=== PATIENT | female | born 1990 | race Two or more races ===

== ENCOUNTER 2020-11-01 09:45 | Outpatient (REF) | payer OTHER, SELFPAY ==
[2020-11-02 07:21] LABS: BV Int Neg Control Negative (Negative); BV Int Pos Control Positive (Positive)
[2020-11-08 09:47] LABS: HPV mRNA E6/E7 rflx Not Detected (Not Detected)
[2020-11-30 15:19] LABS: CT PCR NOT DETECTED (Not Detect.); NG PCR NOT DETECTED (Not Detect.)
== END 2020-11-01 09:46 | disposition home or self-care (01) ==
LOC: HO.LAB 09:45
PROVIDERS: Visit Provider Advanced Practice Midwife
DX: Z01.419 Encounter for gynecological examination (general) (routine) without abnormal findings (principal); D25.9 Leiomyoma of uterus, unspecified; N92.0 Excessive and frequent menstruation with regular cycle; Z86.2 Personal history of diseases of the blood and blood-forming organs and certain disorders involving the immune mechanism; N89.8 Other specified noninflammatory disorders of vagina; N86 Erosion and ectropion of cervix uteri; N88.8 Other specified noninflammatory disorders of cervix uteri
CPT/HCPCS: 87480; 87491; 87510; 87591; 87624; 87625; 87660; 88142

== ENCOUNTER 2020-12-18 15:51 | Outpatient (REF) | payer OTHER, SELFPAY ==
--- NOTE | 2020-12-18 15:54 | US_ITS ---
EXAMINATION: ULTRASOUND PELVIS COMPLETE. CLINICAL INFORMATION: Leiomyoma of the uterus. COMPARISON: Ultrasound pelvis 01/13/2020 TECHNIQUE: Transabdominal and transvaginal ultrasound pelvis is performed. FINDINGS: The uterus is retroverted and retroflexed measuring 9.1 cm in length, 3.6 cm in AP and 4.9 cm in transverse dimension. There are 3 hypoechoic lesions. 1. Lesion in the left fundus measures 2.4 x 1.8 x 2.5 cm. Previously it measured 2.0 x 1.7 x 1.8 cm. 2. Lesion in the right fundus measures 2.2 x 1.8 x 1.9 cm. Previously it measured 2.2 x 2.1 x 2.5 cm. 3. Lesion in the posterior body of the uterus measures 1.0 x 0.8. Previously it measured 1.0 x 0.7 x 1.2 cm. The endometrial thickness is 0.6 cm. Small nabothian cysts seen in the cervix. Right ovary measures 3.4 x 1.9 x 1.6 cm and volume 5.4 mL. It is unremarkable. Previously measured 3.4 x 1.5 x 1.8 cm. Left ovary measures 2.4 x 1.9 x 1.6 cm and volume 4.1 mL. It is unremarkable Previously it measured 2.7 x 1.4 x 2.2 cm. There is no free fluid in the cul-de-sac. US/US pelvic complete IMPRESSION: 1. Stable uterine fibroids. 2. Small nabothian cysts seen in the cervix. 3. The ovaries are unremarkable.
== END 2020-12-18 15:52 | disposition home or self-care (01) ==
LOC: HO.US 15:51
PROVIDERS: Visit Provider Advanced Practice Midwife
DX: D25.9 Leiomyoma of uterus, unspecified (principal)
CPT/HCPCS: 76830; 76856

== ENCOUNTER → 2020-12-26 12:20 | Outpatient (BNVA) | payer OTHER, SELFPAY | PROVIDERS: Visit Provider Advanced Practice Midwife ==

== ENCOUNTER 2022-06-09 15:36 | Outpatient (REF) | payer OTHER, SELFPAY ==
[2022-06-10 09:13] LABS: CT PCR NOT DETECTED (Not Detect.); NG PCR NOT DETECTED (Not Detect.)
[2022-06-10 09:44] LABS: BV Int Neg Control Negative (Negative); BV Int Pos Control Positive (Positive)
[2022-06-12 12:26] LABS: HPV mRNA E6/E7 rflx Not Detected (Not Detected)
== END 2022-06-09 15:37 | disposition home or self-care (01) ==
LOC: HO.LAB 15:36
PROVIDERS: Visit Provider Advanced Practice Midwife
DX: Z01.419 Encounter for gynecological examination (general) (routine) without abnormal findings (principal); N88.9 Noninflammatory disorder of cervix uteri, unspecified; N93.9 Abnormal uterine and vaginal bleeding, unspecified; Z20.2 Contact with and (suspected) exposure to infections with a predominantly sexual mode of transmission; N92.1 Excessive and frequent menstruation with irregular cycle
CPT/HCPCS: 87480; 87491; 87510; 87591; 87624; 87660; 88142

== ENCOUNTER 2022-07-29 13:46 | Outpatient (REF) | payer OTHER, SELFPAY ==
--- NOTE | ~2022-07-29 | US_ITS ---
EXAMINATION: US PELVIS CLINICAL INFORMATION: Abnormal bleeding. COMPARISON: Previous pelvic ultrasound, most recent 12/18/2020. TECHNIQUE: Ultrasound of the pelvis is performed using both transabdominal and transvaginal transducers along with Doppler. Transvaginal imaging is performed due to inadequate visualization transabdominally. FINDINGS: The uterus is anteverted and measures 8.7 x 4 x 4.6 cm in dimension. The uterus is heterogeneous appearing. There are 2 focal subserosal hypoechoic uterine lesions suggestive of fibroids measuring 1.7 x 1.3 x 1.2 cm in the left anterior upper uterine body or fundus and measuring 1.8 x 1.6 x 1.6 cm in the right anterior upper uterine body or fundus. Endometrial thickness measures 9 mm. There are small cysts seen in or adjacent to the endometrium measuring up to 5 mm. These were not appreciated on 2020 exam. The ovaries are normal. The right ovary measures 3 x 1.7 x 1.9 cm. The left ovary measures 2.9 x 1.6 x 1.9 cm. There is no fluid in the pelvis. US/US pelvic and transvaginal IMPRESSION: Heterogeneous-appearing uterus. Two stable focal hypoechoic subserosal lesions in the upper uterine body or fundus. Normal thickness endometrium. New small cysts in or adjacent to the endometrium. Fibroids and adenomyomas/adenomyosis should be considered. Normal-appearing ovaries.
[2022-07-29 13:39] LABS: Hematocrit 33.3 % (37.0-47.0); Hemoglobin 9.8 g/dl (12.0-16.0); Mean Corpuscular HGB Conc 29.4 g/dl (31.0-35.0); Mean Corpuscular Hemoglobin 21.3 pg (27.0-33.0); Mean Corpuscular Volume 72.2 fL (80.0-98.0); Mean Platelet Volume 10.3 fL (9.4-12.3); Platelet Count 287 X10*3/uL (160-400); Red Blood Count 4.61 X10*6/uL (4.20-5.50); Red Cell Distribution Width 15.8 % (11.0-16.0); White Blood Count 7.7 X10*3/uL (4.8-10.8)
[2022-07-29 14:20] LABS: Thyroid Stimulating Hormone 0.88 uIU/mL (0.32-4.0)
== END 2022-07-29 13:47 | disposition home or self-care (01) ==
LOC: HO.US 13:46
PROVIDERS: Visit Provider Advanced Practice Midwife
DX: N93.9 Abnormal uterine and vaginal bleeding, unspecified (principal); N92.1 Excessive and frequent menstruation with irregular cycle
CPT/HCPCS: 36415; 76830; 76856; 84443; 85027

== ENCOUNTER 2022-08-05 | Outpatient (REF) | payer OTHER, SELFPAY | END 2022-08-05 00:01 | disposition home or self-care (01) | LOC: HO.LAB | PROVIDERS: PCP Internal Medicine; Visit Provider Advanced Practice Midwife | DX: Z32.02 Encounter for pregnancy test, result negative (principal); N93.9 Abnormal uterine and vaginal bleeding, unspecified | CPT/HCPCS: 58100; 81025; 88305 ==

== ENCOUNTER → 2022-11-06 14:34 | Outpatient (BNVA) | payer OTHER, SELFPAY | PROVIDERS: PCP Internal Medicine; Visit Provider Obstetrics & Gynecology | DX: N93.9 Abnormal uterine and vaginal bleeding, unspecified (principal); D21.9 Benign neoplasm of connective and other soft tissue, unspecified; N88.8 Other specified noninflammatory disorders of cervix uteri | CPT/HCPCS: 57454; 81025 ==

== ENCOUNTER 2022-11-06 16:58 | Outpatient (REF) | payer OTHER, SELFPAY | END 2022-11-06 16:59 | disposition home or self-care (01) | LOC: HO.LNP 16:58 | PROVIDERS: Visit Provider Obstetrics & Gynecology | DX: N86 Erosion and ectropion of cervix uteri (principal) | CPT/HCPCS: 88305 ==

== ENCOUNTER → 2022-12-03 12:31 | Outpatient (BNVA) | payer OTHER, SELFPAY | PROVIDERS: PCP Internal Medicine; Visit Provider Obstetrics & Gynecology | DX: Z13.89 Encounter for screening for other disorder (principal) ==

== ENCOUNTER 2023-02-05 10:39 | Outpatient (REF) | payer OTHER, SELFPAY ==
[2023-02-05 12:15] LABS: Hematocrit 34.2 % (37.0-47.0); Hemoglobin 9.9 g/dl (12.0-16.0); Mean Corpuscular HGB Conc 28.9 g/dl (31.0-35.0); Mean Platelet Volume 10.4 fL (9.4-12.3); Platelet Count 285 X10*3/uL (160-400); Red Blood Count 4.96 X10*6/uL (4.20-5.50); Red Cell Distribution Width 18.9 % (11.0-16.0)
== END 2023-02-05 10:40 | disposition home or self-care (01) ==
LOC: HO.LAB 10:39
PROVIDERS: PCP Internal Medicine; Visit Provider Obstetrics & Gynecology
DX: N93.9 Abnormal uterine and vaginal bleeding, unspecified (principal)
CPT/HCPCS: 36415; 85027

== ENCOUNTER 2023-05-07 10:41 | Outpatient (REF) | payer OTHER, SELFPAY ==
--- NOTE | ~2023-05-07 | US_ITS ---
EXAMINATION: US PELVIS CLINICAL INFORMATION: Myoma. COMPARISON: Pelvic ultrasound 07/29/2022. TECHNIQUE: Ultrasound of the pelvis is performed using both transabdominal and transvaginal transducers along with Doppler. Transvaginal imaging is performed due to inadequate visualization transabdominally. FINDINGS: UTERUS: The uterus is anteverted and measures 9.9 x 4.0 x 5.6 cm. The double wall endometrial thickness is 0.5 mm. 2 uterine fibroids are seen one in the right body subserosal measuring 1.8 x 1.4 x 1.6 cm (previously 2.2 x 1.8 x 1.9 cm) and the other on the left submucosal measuring 2.1 x 1.7 x 2.0 cm (previously 2.4 x 1.8 x 1.8 cm). No new uterine fibroids are seen. Nabothian cysts are present in the cervix. ADNEXA: Both ovaries are visualized. There is normal color flow to the adnexa. There is no ovarian torsion. There is no pelvic ascites or fluid collection. Right ovary measures 3.1 x 1.0 x 2.3 cm for a volume of 3.7 mL. Left ovary measures 2.7 x 1.2 x 1.7 cm for a volume of 2.9 mL. US/US pelvic and transvaginal IMPRESSION: Two uterine fibroids are present as described above. One appears smaller, the other about the same.
== END 2023-05-07 10:42 | disposition home or self-care (01) ==
LOC: HO.US 10:41
PROVIDERS: PCP Internal Medicine; Visit Provider Obstetrics & Gynecology
DX: D21.9 Benign neoplasm of connective and other soft tissue, unspecified (principal)
CPT/HCPCS: 76830; 76856

== ENCOUNTER 2023-05-21 09:39 | Outpatient (REF) | payer OTHER, SELFPAY ==
[2023-05-22 02:50] LABS: CT PCR NOT DETECTED (Not Detect.); NG PCR NOT DETECTED (Not Detect.)
[2023-05-22 11:12] LABS: BV Int Neg Control Negative (Negative); BV Int Pos Control Positive (Positive)
== END 2023-05-21 09:40 | disposition home or self-care (01) ==
LOC: HO.LNP 09:39
PROVIDERS: PCP Internal Medicine; Visit Provider Obstetrics & Gynecology
DX: B37.31 Acute candidiasis of vulva and vagina (principal); D21.9 Benign neoplasm of connective and other soft tissue, unspecified
CPT/HCPCS: 0353U; 81003; 87480; 87510; 87660

== ENCOUNTER 2023-07-09 11:59 | Outpatient (AMB) | payer OTHER, SELFPAY ==
[2023-07-09 12:08] VITALS: BP 118/70; BMI 36.3
--- NOTE | 2023-07-09 12:08 | MHC.OFFVIS ---
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 No complaints. 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 Sexually active: Yes Sexual orientation: Straight/Heterosexual Gender identity: Female Female Reproductive History Menstrual Age of Menarche: 8 Total pregnancies: 3 Full term: 3 Number of Living Children: 3 Date of last pap smear: 06/10/22 Review of Systems Const All systems reviewed & are unremarkable except as noted in HPI and below Card Reports as per HPI Resp Reports as per HPI GI Reports as per HPI and Reports no additional complaints Reports as per HPI Physical Exam Vital Signs: Last Vital Signs BP 118/70 07/09/23 12:08 BMI result Body Mass Index 36.3 Const General: cooperative, healthy appearing and comfortable Chest Chest palpation & inspection: normal inspection of the chest and normal palpation of entire chest wall Breast/axilla inspection: normal inspection of the breasts and normal inspection of the axillae Breast/axilla palpation: normal palpation of the breasts, normal palpation of the axillae and no axillary lymphadenopathy Resp Effort & Inspection: normal respiratory effort Auscultation: clear to auscultation bilaterally Percussion: percussion normal Cardio Palpation: normal PMI Rate: regular rate Rhythm: regular rhythm Heart sounds: no murmurs and no rubs Peripheral pulses: Peripheral pulses 2+ throughout GI Inspection: Yes normal to inspection Palpation (GI): Soft to palpation, nontender, no guarding, not rigid and No hepatosplenomegaly present Percussion: Yes normal to percussion Auscultation: normal bowel sounds Rectal Exam - Female: deferred General: Yes bladder normal to palpation External Female Exam: No lesion Speculum Exam - Vagina: normal appearance of the vagina, normal palpation, normal vaginal discharge and not erythematous Speculum Exam - Cervix: normal appearance of the cervix and normal palpation Bimanual exam- vagina & uterus: normal bimanual exam, normal palpation, uterine size normal, bladder normal to palpation, consistency normal and normal palpation Bimanual Exam- Adnexa, other: normal adnexae, no masses and no tenderness Assessment & Plan Assessment & Plan (1) Well woman exam: Code(s): Z01.419 - Encounter for gynecological examination (general) (routine) without abnormal findings Plan: Cotesting not indicated this year. Counseled the patient about the recommended dietary allowance of 1000 mg of Calcium & 600 IU of vitamin D. The patient was instructed to perform monthly self-breast exams and to schedule an annual exam in a year; All questions answered and the patient verbalized understanding. Instructed the patient to schedule annual exam in a year Coding Level of Care Code Est Pt Prev Care 18-39y(67286) Diagnoses Well woman exam Z01.419
== END 2023-07-09 12:35 | disposition home or self-care (01) ==
LOC: HO.HWS 11:59
PROVIDERS: PCP Internal Medicine; Visit Provider Obstetrics & Gynecology
DX: Z01.419 Encounter for gynecological examination (general) (routine) without abnormal findings (principal)
CPT/HCPCS: 99395

== ENCOUNTER → 2023-07-09 11:59 | Outpatient (BNVA) | payer OTHER, SELFPAY | PROVIDERS: PCP Internal Medicine; Visit Provider Obstetrics & Gynecology ==

== ENCOUNTER 2024-09-07 14:14 | Outpatient (REF) | payer MEDICAID, SELFPAY | END 2024-09-07 14:15 | disposition home or self-care (01) | LOC: HO.LNP 14:14 | PROVIDERS: PCP Internal Medicine; Visit Provider Obstetrics & Gynecology | DX: Z01.419 Encounter for gynecological examination (general) (routine) without abnormal findings (principal); D21.9 Benign neoplasm of connective and other soft tissue, unspecified; N93.9 Abnormal uterine and vaginal bleeding, unspecified | CPT/HCPCS: 99395 ==

== ENCOUNTER 2024-09-07 14:14 | Outpatient (AMB) | payer MEDICAID, SELFPAY ==
--- NOTE | 2024-09-07 14:35 | MHC.OFFVIS ---
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 Complaining of heavy menstrual cycles associated with pelvic cramping and passage of blood clots Last Pap/HPV was negative in 06/13 05/15 pelvic ultrasound showed 2 myomas [facility] Medical History Obesity (BMI 30-39.9) Dysmenorrhea History of anemia Menorrhagia Uterine fibroid Asthma Surgical History History of bilateral tubal ligation Family History Maternal Grandmother Ovarian cancer Social History Household Members: Significant Other and Children Housing: House Alcohol intake: never Patient Tobacco Use Status: Never used Tobacco 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al status: employed 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 Sexual orientation: Straight/Heterosexual Gender identity: Female Female Reproductive History Menstrual Age of Menarche: 8 Date of last menstrual period: 08/09/24 control method: permanent sterilization Date of last pap smear: 06/10/22 Review of Systems Const All systems reviewed & are unremarkable except as noted in HPI and below Card Reports as per HPI Resp Reports as per HPI GI Reports as per HPI and Reports no additional complaints Reports as per HPI Physical Exam Vital Signs: Last Vital Signs BP 114/66 09/07/24 14:44 BMI result Body Mass Index 36.0 Const General: cooperative, healthy appearing and comfortable Chest Chest palpation & inspection: normal inspection of the chest and normal palpation of entire chest wall Breast/axilla inspection: normal inspection of the breasts and normal inspection of the axillae Breast/axilla palpation: normal palpation of the breasts, normal palpation of the axillae and no axillary lymphadenopathy Resp Effort & Inspection: normal respiratory effort Auscultation: clear to auscultation bilaterally Percussion: percussion normal Cardio Palpation: normal PMI Rate: regular rate Rhythm: regular rhythm Heart sounds: no murmurs and no rubs Peripheral pulses: Peripheral pulses 2+ throughout GI Inspection: Yes normal to inspection Palpation (GI): Soft to palpation, nontender, no guarding, not rigid and No hepatosplenomegaly present Percussion: Yes normal to percussion Auscultation: normal bowel sounds Rectal Exam - Female: deferred General: Yes bladder normal to palpation External Female Exam: No lesion Speculum Exam - Vagina: normal appearance of the vagina, normal palpation, normal vaginal discharge and not erythematous Speculum Exam - Cervix: normal appearance of the cervix and normal palpation Bimanual exam- vagina & uterus: normal bimanual exam, normal palpation, uterine size normal, bladder normal to palpation, consistency normal and normal palpation Bimanual Exam- Adnexa, other: normal adnexae, no masses and no tenderness Assessment & Plan Assessment & Plan (1) Well woman exam: Code(s): Z01.419 - Encounter for gynecological examination (general) (routine) without abnormal findings Category: Medical Plan: Cotesting not indicated this year. Counseled the patient about the recommended dietary allowance of 1000 mg of Calcium & 600 IU of vitamin D. The patient was instructed to perform monthly self-breast exams and to schedule an annual exam in a year; All questions answered and the patient verbalized understanding. Instructed the patient to schedule annual exam in a year (2) Myoma: Code(s): D21.9 - Benign neoplasm of connective and other soft tissue, unspecified Category: Medical Plan: Pelvic ultrasound ordered for follow-up regarding to previous myomas. Instructions given the patient to schedule an ultrasound and a follow-up appointment within 2 weeks. All questions answered, the patient verbalized understanding (3) Abnormal uterine bleeding: Code(s): N93.9 - Abnormal uterine and vaginal bleeding, unspecified Category: Medical Plan: GC and chlamydia taken CBC, TSH, prolactin, HCG, and pelvic ultrasound ordered. Discussed with the patient the different causes of abnormal bleeding including thyroid disorders, uterine and ovarian pathology, endometrial hyperplasia, carcinoma and other potential causes. Discussed with the patient the work up including CBC (to r/o anemia), TSH, prolactin, pelvic Ultrasound, endometrial biopsy to r/o endometrial pathology. All questions answered and the patient verbalized understanding. Instructed the patient to schedule an appointment for an endometrial biopsy in 2 weeks. Orders: Orders Complete Blood Count no Diff Today N93.9 - Abnormal uterine and vaginal bleeding, unspecified US pelvic and transvaginal Today N93.9 - Abnormal uterine and vaginal bleeding, unspecified TSH reflex Free T4 Today N93.9 - Abnormal uterine and vaginal bleeding, unspecified HCG Quantitative Today N93.9 - Abnormal uterine and vaginal bleeding, unspecified Prolactin Today N93.9 - Abnormal uterine and vaginal bleeding, unspecified Coding Level of Care Code Est Pt Prev Care 18-39y(70833) Diagnoses Well woman exam Z01.419 Myoma D21.9 Abnormal uterine bleeding N93.9
[2024-09-07 14:44] VITALS: BP 114/66; BMI 36.0
== END 2024-09-07 14:57 | disposition home or self-care (01) ==
LOC: HO.HWS 14:14
PROVIDERS: PCP Internal Medicine; Visit Provider Obstetrics & Gynecology
DX: Z01.419 Encounter for gynecological examination (general) (routine) without abnormal findings (principal); D21.9 Benign neoplasm of connective and other soft tissue, unspecified; N93.9 Abnormal uterine and vaginal bleeding, unspecified
CPT/HCPCS: 99395

== ENCOUNTER 2024-09-07 15:01 | Outpatient (REF) | payer MEDICAID, SELFPAY ==
[2024-09-07 15:55] LABS: Hematocrit 30.1 % (37.0-47.0); Hemoglobin 8.9 g/dl (12.0-16.0); Mean Corpuscular HGB Conc 29.6 g/dl (31.0-35.0); Mean Corpuscular Hemoglobin 20.2 pg (27.0-33.0); Mean Corpuscular Volume 68.3 fL (80.0-98.0); Mean Platelet Volume 10.4 fL (9.4-12.3); Platelet Count 308 X10*3/uL (160-400); Red Blood Count 4.41 X10*6/uL (4.20-5.50); Red Cell Distribution Width 17.2 % (11.0-16.0)
[2024-09-07 16:56] LABS: HCG Quantitative < 2 mIU/mL; TSH reflex Free T4 1.13 uIU/mL (0.32-4.0)
[2024-09-08 04:34] LABS: CT PCR NOT DETECTED (Not Detect.); NG PCR NOT DETECTED (Not Detect.)
[2024-09-08 17:44] LABS: Prolactin 8.6 ng/mL
== END 2024-09-07 15:02 | disposition home or self-care (01) ==
LOC: HO.LAB 15:01
PROVIDERS: PCP Internal Medicine; Visit Provider Obstetrics & Gynecology
DX: N93.9 Abnormal uterine and vaginal bleeding, unspecified (principal)
CPT/HCPCS: 84146; 84443; 84702; 85027; 87491; 87591

== ENCOUNTER 2024-09-12 14:48 | Outpatient (REF) | payer MEDICAID, SELFPAY | END 2024-09-12 14:49 | disposition home or self-care (01) | LOC: HO.US 14:48 | PROVIDERS: PCP Internal Medicine; Visit Provider Obstetrics & Gynecology | DX: N93.9 Abnormal uterine and vaginal bleeding, unspecified (principal) | CPT/HCPCS: 76830; 76856 ==

== ENCOUNTER → 2024-09-12 14:49 | Outpatient (BNV) | payer MEDICAID, SELFPAY | PROVIDERS: PCP Internal Medicine; Visit Provider Radiology Diagnostic Radiology | DX: N93.9 Abnormal uterine and vaginal bleeding, unspecified (principal) | CPT/HCPCS: 76830; 76856 ==

== ENCOUNTER 2024-11-09 13:41 | Outpatient (REF) | payer MEDICAID, SELFPAY | END 2024-11-09 13:42 | disposition home or self-care (01) | LOC: HO.LNP 13:41 | PROVIDERS: PCP Internal Medicine; Visit Provider Obstetrics & Gynecology | DX: N93.9 Abnormal uterine and vaginal bleeding, unspecified (principal) | CPT/HCPCS: 58100; 81025; 88305 ==

== ENCOUNTER 2024-11-09 13:41 | Outpatient (AMB) | payer MEDICAID, SELFPAY ==
--- NOTE | 2024-11-09 13:49 | MHC.OFFVIS ---
Vital Signs 11/09/24 13:50 Height 5 ft 2 in Weight 197 lb BMI 36.0 BP 122/70 Intake Visit Reasons: EMB Ticket Seller: Ticket Seller Present (Snehal) Accompanied by: Self / Same As Patient Allergies mushroom Allergy (Unknown, Verified 11/09/24 13:50) Unknown SHELLFISH Allergy (Severe, Uncoded 09/07/24 14:44) THROAT CLOSES, ITCHY HPI Comments Details: Presenting for EMB [facility] Medical History Obesity (BMI 30-39.9) Dysmenorrhea History of anemia Menorrhagia Uterine fibroid Asthma Surgical History History of bilateral tubal ligation Family History Maternal Grandmother Ovarian cancer Social History Household Members: Significant Other and Children Housing: House Alcohol intake: never Patient Tobacco Use Status: Never used Tobacco 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al status: employed 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: [employer] Sexual orientation: Straight/Heterosexual Gender identity: Female Female Reproductive History Menstrual Age of Menarche: 8 Review of Systems Const All systems reviewed & are unremarkable except as noted in HPI and below Reports as per HPI and Reports no additional complaints GI Reports no additional complaints Reports no additional complaints Physical Exam Vital Signs: Last Vital Signs BP 122/70 11/09/24 13:50 BMI result Body Mass Index 36.0 Office Procedures Endometrial Biopsy Details: The patient was counseled regarding the indication and benefits of endometrial sampling to rule out endometrial pathology including not limited to endometrial hyperplasia or endometrial cancer and others; The alternatives (Either do nothing vs. hysteroscopy D&C) & the risks were discussed with the patient including but not limited: pain, uterine perforation, bleeding, infection, possible injury to bladder, bowel, ureter, possible need for blood transfusion with all its possible risks. The patient verbalized understanding all questions answered and signed consent. Urine test done in the office was negative The patient was placed into the dorsal lithotomy position; a speculum was inserted in the vagina. Using aseptic technique for the procedure, the cervix was cleansed with Betadine. The anterior lip of the cervix was grasped with a single tooth tenaculum. The uterus was sounded to 7 cm with a 4 mm Pipelle was used. Tissues samples were obtained and placed in formalin, in a patient labeled container and sent to the pathology department. At the end of the procedure, there was minimal bleeding noted The patient tolerated the procedure well and was discharged in good condition with the following instructions: Nothing in the vagina until the bleeding stops. No sex until the bleeding stops, to call if any of the following occurs: fever (>100.4), flu-like symptoms, abdominal pain, heavy bleeding, four smelling vaginal discharge. The patient was instructed to schedule a Follow up appointment in 2 weeks to discuss pathology results of the biopsy and treatment options. This note was generated with a voice recognition program. Some errors may have been overlooked during the review of this note. Sometimes these errors may affect the content or meaning of a given sentence. [id number] Biopsy Assessment & Plan Assessment & Plan (1) Abnormal uterine bleeding: Code(s): N93.9 - Abnormal uterine and vaginal bleeding, unspecified Category: Medical Plan: EMB done, see procedure note Orders: Orders AMB Endometrial Biopsy Today N93.9 - Abnormal uterine and vaginal bleeding, unspecified Coding Level of Care Code Procedure Only Diagnoses Abnormal uterine bleeding N93.9 CPT Codes Endometrial Biopsy - CPT: 83004-[id number] Biopsy ([id number])
[2024-11-09 13:50] VITALS: BP 122/70; BMI 36.0
== END 2024-11-09 14:15 | disposition home or self-care (01) ==
PROVIDERS: PCP Internal Medicine; Visit Provider Obstetrics & Gynecology
DX: N93.9 Abnormal uterine and vaginal bleeding, unspecified (principal); Z32.02 Encounter for pregnancy test, result negative
CPT/HCPCS: 58100

== ENCOUNTER 2025-01-16 11:39 | Outpatient (AMB) | payer MEDICAID, SELFPAY ==
--- NOTE | 2025-01-16 11:39 | A.OFFVIS_ITS ---
Intake Visit Reasons: EMB results Allergies mushroom Allergy (Unknown, Verified 11/09/24 13:50) Unknown SHELLFISH Allergy (Severe, Uncoded 09/07/24 14:44) THROAT CLOSES, ITCHY HPI Comments Details: The patient is presenting for follow-up to discuss the results of her abnormal uterine bleeding workup and options of treatment. The following workup was done.: H&H= 8.9/30.1 TSH, prolactin, hCG, GC and chlamydia were negative. Endometrial biopsy pathology showed the following: Proliferative endometrium; no atypia or hyperplasia identified Co testing was done in 06/13 was negative. Pelvic ultrasound showed the following: Uterus: The uterus is anteverted, anteflexed, and measures 9.2 x 4.8 x 5.9 cm. The cervix is normal with small nabothian cysts present. The double wall endometrial thickness is 10 mm. It is uniform without irregularity. Uterus is smooth in contour. There are 3 myometrial fibroid tumors. -A right lateral subserosal mid uterine segment fibroid measures 1.3 x 1.2 x 1.2 cm, (previously 1.8 x 1.4 x 1.6 cm). -A left lateral subserosal mid uterine segment fibroid measures 1.5 x 1.4 x 1.6 cm, (previously 2.1 x 1.7 x 2.0 cm). -A smaller midline ventral fundal submucosal fibroid measures 1.2 x 0.9 x 1.0 cm, and was not previously identified. Adnexa: Both ovaries are visualized. There is normal color flow to the adnexa. There is no ovarian torsion. There is no pelvic ascites or fluid collection. There are no adnexal masses. Right ovary measures 3.1 x 1.8 x 1.6 cm. Volume = 4.7 mL (previous volume = 3.7 mL). It is sonographically normal. Left ovary measures 3.0 x 3.0 x 1.7 cm. Volume = 8.0 mL (previous volume = 2.9 mL). 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[employer] Sexual orientation: Straight/Heterosexual Gender identity: Female Female Reproductive History Menstrual Age of Menarche: 8 Review of Systems Const All systems reviewed & are unremarkable except as noted in HPI and below Reports as per HPI and Reports no additional complaints GI Reports no additional complaints Reports no additional complaints Telehealth Telehealth Telehealth Platform: Telephone Location of provider rendering services: practice address Location of patient: address on file Patient Identification confirmed using: Name, : Yes Telehealth method: video Patient verbally consented to treatment: Yes Patient verbally consented to billing insurance company: Yes Patient informed of any privacy concerns related to visit: Yes Minutes spent on Phone/Video with Pt.: 6 Assessment & Plan Assessment & Plan (1) Abnormal uterine bleeding: Comment: Anemia Code(s): N93.9 - Abnormal uterine and vaginal bleeding, unspecified Category: Medical Plan: Discussed with the patient the results of the work up done and options of treatment including Lysteda, control pills, Mirena IUD, endometrial ablation and hysterectomy. All pros, cons, risks and benefits if each option was discussed with the patient and the patient decided to think about it and get back to us. A more detailed discussion about Mirena IUD was conducted including mechanism of action, risks (uterine perforation, infection, injury to bladder, bowel, displacement, and others) benefits (hypo menorrhea, amenorrhea, ...). GC/CT were taken and the patient was instructed if interested to schedule Mirena IUD insertion on day 1-5 of next cycle . All questions answered, the patient verbalized understanding (2) Uterine fibroid: Code(s): D25.9 - Leiomyoma of uterus, unspecified Category: Medical Qualifiers: Uterine leiomyoma location: unspecified location Qualified Code(s): D25.9 - Leiomyoma of uterus, unspecified Plan: Discussed with the patient the results of the ultrasound and the size of the myomas. Discussed with the patient risk of myosarcoma and symptoms that are caused by myomas including but not limited to pelvic pain, pressure symptoms, abnormal uterine bleeding. In addition discussed with the patient options of treatment for myomas including: Serial ultrasounds periodically to follow-up on the size of the myoma while targeting the treatment against fibroids related symptoms ( control pills, Mirena IUD, progesterone treatment, GnRH agonist/antagonist, uterine artery embolization or endometrial ablation) versus surgical treatment including hysterectomy and or myomectomy. All pros and cons, risks and benefits of all options were discussed with the patient. The patient understands that delay in surgical treatment in case of myosarcoma can affect her prognosis, after further discussion, the patient decided to think about it and get back to us . I spent a total of 20 minutes reviewing the chart, talking to the patient via video and documenting in the medical record. Orders: Orders Complete Blood Count no Diff 3 Months N93.9 - Abnormal uterine and vaginal bleeding, unspecified Medications: Discontinued desogestrel-ethinyl estradiol 0.15-0.03 mg (Apri) Discontinued Reason: Patient no longer taking 1 tab PO DAILY 28 days 28 tabs 11RF Coding Level of Care Code Tele Est Pt Level 3 (16531) Diagnoses Abnormal uterine bleeding N93.9 Uterine leiomyoma, unspecified location D25.9 Uterine leiomyoma location: unspecified location
--- OUTSIDE RECORDS SUMMARY | 2025-01-16 13:27 | XMS_ITS | Encounter Summary ---
Author Organization [facility] Address [address] [place] [address] [address] [place] [address] Care Team Providers Care Division Commander Name Role Phone Bessy Hawk MD Primary Care Provider + Encounter Details Date Type Department Care Team (Late st Contact Info) Description 08/26/2023 Abstract [facility] [address] [place], [place] [phone] Richelle Bhardwaj Social History Tobacco Use Types Packs/Day Years Used Date Smoking Tobacco: Never Smokeless Tobacco: Never Comments Unknown Sex and Gender Information Value Date Recorded Sex Assigned at Female 09/22/2022 10:18 AM EDT Legal Sex Female 10:18 AM EDT Gender Identity Female 09/22/2022 10:18 AM EDT Sexual Orientation Straight 09/22/2022 10 :18 AM EDT documented as of this encounter Plan of Treatment Not on file documented as of this encounter Procedures Procedure Name Priority Date/Time Associated Diagnosis Comments PAP/HPV Routine 06/09/2022 documented in this encounter Results * Hm Pap Smear (06/09/2022) Pap Negative for intraephithelial lesion or malignancy Negative for intraephithelial lesion or malignancy, Other HPV Undetected Historical Provider HEALTH MAINTENANCE Final Result documented in this encounter Visit Diagnoses Not on filedocumented in this encounter Care Teams Division Commander Relationship Specialty Start Date End Date Bessy Hawk MD [address] [place], [place] [phone] PCP - General Family Medicine 10/20/16 documented as of this encounter
--- OUTSIDE RECORDS SUMMARY | 2025-01-16 13:27 | XMS_ITS | Encounter Summary ---
Author Organization [facility] Address [address] [place] [address] 7 [place] [address] Care Team Providers Care Graphics Programmer Name Role Phone Bessy Hawk MD Primary Care Provider + Reason for Visit * Reason Comments Med Refill Encounter Details Date Type Department Care Team (Late st Contact Info) Description 03/18/2024 Refill [facility] [address] [place], [place] [phone] Bessy Hawk MD [address] [place] [address] Social History Tobacco Use Types Packs/Day Years [...] on file documented as of this encounter Visit Diagnoses Not on filedocumented in this encounter Care Teams Graphics Programmer Relationship Specialty Start Date End Date Bessy Hawk MD [address] [place], [place] [phone] PCP - General Family Medicine 10/20/16 documented as of this encounter
--- OUTSIDE RECORDS SUMMARY | 2025-01-16 13:27 | XMS_ITS | Clinical Summary ---
Author Organization [facility] Address [address] [place] [address] Care Team Providers Care Data Reduction Technician Name Role Phone Unavailable Primary Care Provider Unavailabl e Social History Tobacco Use Types Packs/Day Years Used Date Smoking Tobacco: Never Assessed Comments Unknown Sex and Gender Information Value Date Recorded Sex Assigned at Not on file Legal Sex Female 1:45 AM EST Gender Identity Not on file Sexual Orientation Not on file Plan of Treatment Health Maintenance Due Date Last Done Comments DTaP,Tdap,and Td Vaccines (1 - Tdap) 2007 Hepatitis B Vaccines (1 of 3 - 19+ 3-dose series) 2007 Cervical Cancer Screening: P ap Smear 2009 COVID-19 Vaccine ( - 2023-2 5 season) 2024 Influenza Vaccine (#1) 2024 HIB Vaccines Aged Out No longer eligi ble based on patient's age to complete this topic HPV Vaccines Aged Out No longer eligi ble based on patient's age to complete this topic Hepatitis A Vaccines Aged Out No long er eligible based on patient's age to complete this topic IPV Vaccines Aged Out No longer eligi ble based on patient's age to complete this topic MMR Vaccines Aged Out No longer eligi ble based on patient's age to complete this topic Meningococcal ACWY Vaccine Aged Out N o longer eligible based on patient's age to complete this topic Meningococcal B Vacine Aged Out No lo nger eligible based on patient's age to complete this topic Pneumococcal Vaccine: Pediat rics (0 to 5 Years) and At-Risk Patients (6 to 64 Years) Aged Out No longer eligible b ased on patient's age to complete this topic RSV Immunization Patients Un cristobal 20 months Aged Out No longer eligible b ased on patient's age to complete this topic Varicella Vaccines Aged Out No longer eligible based on patient's age to complete this topic
--- OUTSIDE RECORDS SUMMARY | 2025-01-16 13:27 | XMS_ITS | Clinical Summary ---
Author Organization [employer] Address [address] [place] [address] 7t [place] [address] Care Team Providers Care Naumkeag Operator Name Role Phone Bessy Hawk MD Primary Care Provider + Allergies Active Allergy Reactions Criticality Noted Date Comments Mushroom Extract Complex (Obsolete) 04/24/2023 Shellfish-Derived Products Unknown 0 Medications Apri 0.15-30 MG-MCG tablet Take 1 tablet by mouth in the morning. 04/15/20 23 Active valACYclovir (Valtrex) 500 MG tablet TAKE 1 TABLET BY MOUTH TWICE A DAY FOR 3 DAYS AT ONSET OF SYMPTOMS. MAY REPEAT NEEDED 08/05/20 22 Active ferrous sulfate 325 (65 Fe) MG tablet TAKE 1 TABLET BY MOUTH 2 TIMES DAILY. (NOT COVERED) 180 tablet 1 11/18/20 23 Active Mometasone Furoate (Asmanex HFA) 100 MCG/ACT aerosol Inhale 2 Inhalation. Once per day. Rinse mouth after use 39 g 3 04/01/20 24 Active fluticasone (Flonase) 50 MCG/ACT nasal spray Administer 1 spray into each nostril Once per day. 16 g 2 04/01/20 24 Active cetirizine (ZyrTEC) 10 MG tablet TAKE 1 TABLET BY MOUTH ONCE DAILY 90 tablet 06/30/20 24 Active albuterol (Ventolin HFA) 108 (90 Base) MCG/ACT inhalerIndicatio ns:Moderate persistent asthma without complication INHALE 2 PUFFS INTO THE LUNGS EVERY 4 TO 6 HOURS NEEDED. 18 g 3 10/25/20 24 Active EPINEPHrine (Epipen) 0.3 MG/0.3ML injection syringe INJECT 0.3 ML INTRAMUSCULARLY ONCE NEEDED FOR ANAPHYLAXIS 2 each 1 11/25/19 25 Active Active Problems Problem Noted Date Diagnosed Date Body aches 04/01/2024 Assessment & Plan (06/04/2024 12:19 PM EDT): Rapid viral tests are NEG today. Advised to take Tylenol prn, increase fluid intake, rest at home 1-2d, discussed re warning signs of an infection: cough, sore throat, fever, diarrhea, UTI sxs for more than 3d, then re consult [facility]. Encounter for preventive health examination 03/23 Assessment & Plan (04/01/2024 10:03 AM EDT): Discussed with patient re increase fresh fruit and vegetable intake. Counseled re moderate exercise as tolerated, up to 20min/d Patient feels safe at home. PAP smear up to date, next one due 2026 (Midwives) Eye exam up to date, next one due 11/2025 Labs up to date, next one due 04/2025 Vaccinations agreed to PCV20 + MMR booster today Dental visit up to date next one due 06/2024 Abdominal bloating 04/24/2023 Menorrhagia 04/24/2023 Mild intermittent asthma 04/24/2023 Assessment & Plan (04/01/2024 10:04 AM EDT): Restart asmanex 2 puffs daily and fu w/ me in 6 m Use albuterol PRN asthma exacerbation PCV20 today Pityriasis versicolor 04/24/2023 Acne 08/02/2013 Herpes simplex type 2 infection 08/02/2013 Overweight 08/02/2013 Asthma 04/04/2013 Allergic rhinitis 06/23/2012 Assessment & Plan (04/01/2024 10:03 AM EDT): Use flonase + zyrtec x 1 wk then PRN Dysmenorrhea 06/23/2012 Iron deficiency anemia 06/23/2012 Encounters Date Type Department Care Team Description 11/24/2024 Refill [facility] [address] [place], [place] [phone] Bessy Hawk MD 11/17/2024 Telephone [facility] [address] [place] [address] Bessy Hawk MD December recall 10/24/2024 Refill [facility] [address] [place] [address] Bessy Hawk MD Moderate persistent asthma without complication from Last 3 Months Immunizations Name Administration Dates Next Due DTP 05/09/1992, 0,1988,10/06,1988 DTaP 04/10/2011 HPV, Quadrivalent 02/19/2011,10/21/2010,07/31/20 10 Hep B, adult 02/14/2002,09/15/2001,08/16/2001 IPV 05/09/1992, 0,1988,10/06,1988 Influenza Injectable Quadriv alant Preservative Free IIV4 MDCK 09/04/2022 Influenza injectable quadriv alent preservative free 09/21/2021,09/05/2020 Influenza, IIV3, injectable 11/20/2014 Influenza, Split (incl. paul fied surface antigen) 08/02/2013 MMR 09/15/2023, 3,11/27/2006,05/09,1988 MMRV 12/10/2011 Pneumococcal Conjugate PCV 20 04/01/2024 Pneumococcal Polysaccharide PPSV23 11/20/2014 Tdap 09/02/2019 Varicella 08/14/2023 Social History Tobacco Use Types Packs/Day Years Used Date Smoking Tobacco: Never Smokeless Tobacco: Never Tobacco Cessation:Counseling Given: Not Answered Alcohol Use Standard Drinks/Week Comments Never 0 (1 standard drink = 0.6 oz pur e alcohol) Housing Stability Answer Date Recorded What is your housing situation today? I have ana jeff 03/23/[address] you li ve. Do you have problems with any of the following? None of the above 03/23/2024 Food Insecurity Answer Date Recorded Within the past 12 months, y ou worried that your food would run out before you got money to buy more: Never True 03/23/2024 Within the past 12 months,th e food you bought just didn't last and you didn't have enough money to get more: Never True 11/2023 Transportation Answer Date Recorded In the past 12 months, has l ack of transportation kept you from medical appts, meetings, work or from getting things needed for daily living? No 03/23/2024 Utilities Answer Date Recorded In the past 12 months, has t he electric, gas, oil or water company threatened to shut off services in your home? No 03/23/2024 Comments No Sex and Gender Information Value Date Recorded Sex Assigned at Female 09/22/2022 10:18 AM EDT Legal Sex Female 10:18 AM EDT Gender Identity Female 09/22/2022 10:18 AM EDT Sexual Orientation Straight 09/22/2022 10 :18 AM EDT Last Filed Vital Signs Vital Sign Reading Time Taken Comments Blood Pressure 140/89 04/01/2024 9:12 AM EDT Pulse 68 04/01/2024 9:12 AM EDT Temperature 36.2 ??C (97.1 ??F) 04/01/2024 9:12 AM ED T Respiratory Rate 18 12/14/2023 9:17 AM EST Oxygen Saturation 97% 04/01/2024 9:12 AM EDT Inhaled Oxygen Concentration - - Weight 89 kg (196 lb 4 oz) 04/01/2024 9:12 AM ED T Height 157.5 cm (5' 2 ) 04/01/2024 9:12 AM EDT Body Mass Index 35.89 04/01/2024 9:12 AM EDT Plan of Treatment Health Maintenance Due Date Last Done Comments Depression Screening 1988 Alcohol/Substance Use Screening 2000 Family Planning (PISQ) 2003 COVID-19 Vaccine ( season) 2024 03/03/2022, 08/13/2021, 07/19/2021 Influenza Vaccine (#1) 2024 , 09/21/2021, 09/05/2020, Additional history exists SDOH Screening 03/23/2025 03/23/2024 Tobacco Screening 04/01/2025 04/01/2024 Cervical Cancer Screening 06/09/2027 HPV/Cotest 06/09/2027 06/09/2022, 05/23, 06/09/2022 Pap Smear 06/09/2027 06/09/2022 DTaP/Tdap/Td Vaccines (8 - Td or Tdap) 09/02/2029 09/02/2019, 04/10/2011, 05/09/1992, Additional history exists Zoster Vaccines (1 of 2) 2038 RSV Patients and Patients Aged 60 years or older (1 - 1-dose 75+ series) 2063 IPV Vaccines Completed 05/09/1992, 04/24, 1988, Additional history exists HPV Vaccines Completed 02/19/2011, 09/24, 07/31/2010 HIV Screening Completed 03/03/2022 Hepatitis C Screening Completed 03/03/2022 Pneumococcal Vaccine: Pediatrics (0 to 5 Years) and At-Risk Patients (6 to 49) Years) Completed 04/01/2024, 11/20/2014 Hepatitis B Vaccines Completed 04/07/2024, 02/14/2002, 09/15/2001, Additional history exists HIB Vaccines Aged Out No longer eligi ble based on patient's age to complete this topic Hepatitis A Vaccines Aged Out No long er eligible based on patient's age to complete this topic Meningococcal Vaccine Aged Out No yanira mert eligible based on patient's age to complete this topic RSV under 20 months Aged Out No longe r eligible based on patient's age to complete this topic Rotavirus Vaccines Aged Out No longer eligible based on patient's age to complete this topic Procedures Procedure Name Priority Date/Time Associated Diagnosis Comments HEMATOXYLIN AND EOSIN STAIN Routine 11/09/2024 2:20 PM EST HM PAP/HPV Routine 06/09/2022 ZZZ HISTORICAL HEPATITIS C AB W/REFL TO HCV RNA, QN, PCR Routine 03/03/2022 10:34 AM EDT HIV 1/2 ANTIGEN/ANTIBODY, FOURTH GENERATION W/RFL Routine 03/03/2022 10:34 AM EDT from Last 3 Months or Most Recently Relevant to Health Maintenance Results * Hematoxylin and Eosin Stain (11/09/2024 2:20 PM EST) 11/09/2024 2:20 PM EST 11/10/2024 6:00 AM EST Narrative [facility] - 11/11/2024 2:32 PM EST ----- ------- Name: Chely Wu ? Age/Sex: 34/F ? : 1990 Unit#: [id number] ?? Attend Dr: Bautista Bullock MD ?Re11/09/24 ?Status: DEP REF ? Location: HO.LNP ?Disch: ? ----- ------- SPEC : [id number] ? RECD: 11/10/24-599 ? STATUS: ??SOUT ? REQ NUM: [id number] ? KATHLEEN: 11/09/24-7900 ? SUBM DR: Bautista Bullock MD ? ENTERED: ??11/10/24-803 ?SP TYPE: Surgical ? OTHR DR: Bessy Hawk MD ? ORDERED: ??HE Stain/2, Gross Micro L4 ? Diagnosis ?? Endometrium, biopsy: ??Proliferative endometrium; no atypia or hyperplasia identified. ?Clinical History AUB ?Microscopic Description Microscopic sections reviewed. ? Material Received ?? EMB ? Gross Description Received in formalin labeled ?EMB? is a 1.8 x 1.5 x 0.45 cm aggregate of multiple irregular and tubular cast fragments of congested and hemorrhagic red-maroon tissue, mucus and blood, submitted in toto in a cassette labeled A. CEDS Copies To: ?? Bessy Hawk MD ?? [facility] ?? [address] [facility] ?? [place] [address] ?? [phone] ?? Bautista Bullock MD ?? [facility] ?? [address] [facility] [address] ?? [place] [address] ?? [phone] ----- ------- Signed (signature on file) Lefty Lozoya MD 11/11/24 7222 ? ----- ------- ? END OF REPORT ? us Generic External Data Provider LAB BLOOD ORDERAB LES Final Result Performing Organization Address [facility]/ZIP Co de Phone Number [facility] [address] [place] [phone] * Pap Smear (06/09/2022) Pap Negative for intraephithelial lesion or malignancy Negative for intraephithelial lesion or malignancy, Other HPV Undetected Historical Provider MD HEALTH MAINTENANCE Final Result * HEPATITIS C AB W/REFL TO HCV RNA, QN, PCR (03/03/2022 10:34 AM EDT) Pathologist [facility] HEPATITIS C ANTIBODY NON-REACT MARI NON-REACT MARI [facility] INDEX 0.02 <1.00 [facility] Comment: ?? HCV antibody was non-reactive. There is no laboratory ?? evidence of HCV infection. ?? In most cases, no further action is required. However, if recent HCV exposure is suspected, a test for HCV RNA (test code 10542) is suggested. ?? For additional information please refer to http://education.Repairy.Stack Exchange/faq/BIN26h3 (This link is being provided for informational/ educational purposes only.) ?? 03/03/2022 10:3 4 AM EDT Liliane CASTELLANOS HISTORICAL/NON ORDERABLE LABS Final Result Performing Organization Address [facility]/ZIP Co de Phone Number [facility] [address] * HIV 1/2 ANTIGEN/ANTIBODY,FOURTH GENERATION W/RFL (03/03/2022 10:34 AM EDT) HIV-1/2 ANTIGEN AND ANTIBODIES, 4TH GENERATION W/ REFLEX NON-REACT MARI NON-REACT MARI [facility] Comment: HIV-1 antigen and HIV-1/HIV-2 antibodies were not detected. There is no laboratory evidence of HIV infection. ?? PLEASE NOTE: This information has been disclosed to you from records whose confidentiality may be protected by state law. ??If your state requires such protection, then the state law prohibits you from making any further disclosure of the information without the specific written consent of the person to whom it pertains, or as otherwise permitted by law. A general authorization for the release of medical or other information is NOT sufficient for this purpose. ? For additional information please refer to http://education.AgInfoLink/faq/XZH993 (This link is being provided for informational/ educational purposes only.) ? The performance of this assay has not been clinically validated in patients less than 2 years old. ?? 03/03/2022 10:3 4 AM EDT Liliane Blake [facility] LAB BLOOD ORDERABLES Final Res ult Performing Organization Address City/State/[facility] Co de Phone Number [facility] [address] from Last 3 Months or Most Recently Relevant to Health Maintenance Insurance [facility] C3 Care Teams Naumkeag Operator Relationship Specialty Start Date End Date Bessy Hawk MD [address] [place] [phone] PCP - General Family Medicine 10/20/16
--- OUTSIDE RECORDS SUMMARY | 2025-01-16 13:27 | XMS_ITS | Encounter Summary ---
Author Organization [facility] Address [address] [place] [address] 7 [place] [address] Care Team Providers Care Spool Salvager Name Role Phone Bessy Hawk MD Primary Care Provider + Encounter Details Date Type Department Care Team (Late st Contact Info) Description 03/19/2023 Orders Only [facility] [address] [place] [address] Loly Busby LPN Social History Tobacco Use Types Packs/Day Years [...] on filedocumented in this encounter Care Teams Spool Salvager Relationship Specialty Start Date End Date Bessy Hawk MD [address] [place] [address] PCP - General Family Medicine 10/20/16 documented as of this encounter
== END 2025-01-16 12:21 | disposition home or self-care (01) ==
LOC: HO.HWS 11:39
PROVIDERS: PCP Internal Medicine; Visit Provider Obstetrics & Gynecology
DX: N93.9 Abnormal uterine and vaginal bleeding, unspecified (principal); D25.9 Leiomyoma of uterus, unspecified
CPT/HCPCS: 99213

== ENCOUNTER → 2025-01-16 11:39 | Outpatient (BNVA) | payer MEDICAID, SELFPAY | PROVIDERS: PCP Internal Medicine; Visit Provider Obstetrics & Gynecology ==

== ENCOUNTER 2025-03-28 12:00 | Outpatient (REF) | payer SELFPAY ==
--- NOTE | ~2025-03-28 | XR_ITS ---
EXAMINATION: XR LUMBOSACRAL SPINE CLINICAL INFORMATION: fall down 13 starirs 2 days ago COMPARISON: None available. TECHNIQUE: Three views of the lumbosacral spine. FINDINGS: The vertebral bodies and posterior elements are normal. The disc spaces are preserved and the vertebral alignment is normal. The paraspinal soft tissues are normal. XR/XR lumbar spine 2-3V IMPRESSION: Unremarkable lumbar spine examination. Electronically signed by: Roman Jones MD 03/28/2025 12:47 PM EDT
--- OUTSIDE RECORDS SUMMARY | 2025-03-28 13:33 | XMS_ITS | Clinical Summary ---
Author Organization [employer] Address [address] [place] [address] 7t [place] [address] Care Team Providers Care Vise Hand Name Role Phone Bessy Hawk MD Primary [...] ANAPHYLAXIS 2 each 1 11/25/19 25 Active cyclobenzaprine (Flexeril) 10 MG tabletIndication s:Acute midline low back pain without sciatica,Fall, initial encounter One tab po at bedtime prn pain of muscles, do not drive with medicaion 30 tablet 03/28/20 25 Active naproxen (Naprosyn) 500 MG tabletIndication s:Acute midline low back pain without sciatica,Fall, initial encounter Take 1 tablet (500 mg) by mouth with breakfast and with evening meal. 20 tablet 03/28/20 25 Active Active Problems Problem Noted Date Diagnosed Date Acute midline low back pain without sciatica 04/2025 Assessment & Plan (03/28/2025 11:45 AM EDT): Likely musculoskeletal. Non-focal, normal motor exam without neurological deficits. No back pain red-flags: bowel/bladder incontinence, IVDU, urinary retention, saddle anesthesia, and significant motor deficits. -Recommend ibuprofen and muscle relaxer prn. Physical therapy referral offered. -Acupuncture clinic offered. -Lifting precaution sand stretching reviewed. -ER precaution discussed. Body aches 04/01/2024 Assessment & Plan (06/04/2024 [...] Encounters Date Type Department Care Team Description 03/28/2025 1:00 PM EDT Office Visit [facility] [address] [place] [phone] Nessa Kearns MD Acute midline low back pain without sciatica (Primary Dx); Fall, initial encounter 03/28/2025 Telephone [facility] [address] [place] [phone] Nessa Kearns MD 02/15/2025 Population Health Risk Score [facility] () Department [address] [place] [phone] Provider, Population Health Generic from Last 3 Months Immunizations Name Administration [...] your housing situation today? I have ana aguilar 03/23/[address] you li [...] Sign Reading Time Taken Comments Blood Pressure 140/83 03/28/2025 11:45 AM EDT Pulse 67 03/28/2025 11:45 AM EDT Temperature 36.6 ??C (97.9 ??F) 03/28/2025 11:45 AM E DT Respiratory Rate 16 03/28/2025 11:45 AM EDT Oxygen Saturation 100% 03/28/2025 11:45 AM EDT Inhaled Oxygen Concentration - - Weight 91.2 kg (201 lb) 03/28/2025 11:45 AM EDT Height 157.5 cm (5' 2 ) 03/28/2025 11:45 AM EDT Body Mass Index 36.76 03/28/2025 11:45 AM EDT Plan of Treatment Health Maintenance Due Date Last Done Comments Depression Screening 1988 Alcohol/Substance Use Screening 2000 Family Planning (PISQ) 2003 COVID-19 Vaccine ( season) 2024 03/03/2022, 08/13/2021, 07/19/2021 Influenza Vaccine (#1) 2024 , 09/21/2021, 09/05/2020, Additional history exists SDOH Screening 03/23/2025 03/23/2024 Tobacco Screening 03/28/2026 03/28/2025 Cervical Cancer Screening 06/09/2027 HPV/Cotest 06/09/2027 06/09/2022, [...] Procedure Name Priority Date/Time Associated Diagnosis Comments XR LUMBAR SPINE 2-3 VIEWS Routine 03/28/2025 12:00 PM EDT Acute midline low back pain without sciatica Fall, initial encounter HM PAP/HPV Routine 06/09/2022 ZZZ HISTORICAL HEPATITIS C AB W/REFL TO HCV RNA, QN, PCR Routine 03/03/2022 10:34 AM EDT HIV 1/2 ANTIGEN/ANTIBODY, FOURTH GENERATION W/RFL Routine 03/03/2022 10:34 AM EDT from Last 3 Months or Most Recently Relevant to Health Maintenance Results * XR Lumbar Spine 2-3 Views (03/28/2025 12:00 PM EDT) Anatomical Region Laterality Modality Spine, L-spine Radiographic Heather ging 03/28/2025 12:0 0 PM EDT Narrative 03/28/2025 12:50 PM EDT ?[facility] ?[address] ?[place] [address] ?XRay Report ? Signed ? Patient: Grey Tinoco,Arylis ?MR#: ?? [id number] ? : 1990 ?Acct:[id number] ? Age/Sex: 34 / F ?ADM Date: 05/06/25 ? Loc: HO.HHCX ? Attending : Nessa Kearns MD ? Ordering Physician: Nessa Kearns MD ?? Date of Service: 03/28/25 ?? Procedure(s): XR lumbar spine 2-3V ?? Accession Number(s): [id number] ? cc: Nessa Kearns MD ? EXAMINATION: ?? XR LUMBOSACRAL SPINE ? CLINICAL INFORMATION: ?? fall down 13 starirs 2 days ago ? COMPARISON: ?? None available. ? TECHNIQUE: ?? Three views of the lumbosacral spine. ? FINDINGS: ?? The vertebral bodies and posterior elements are normal. The disc spaces ?? are preserved and the vertebral alignment is normal. The paraspinal ?? soft tissues are normal. ? XR/XR lumbar spine 2-3V ?? IMPRESSION: ?? Unremarkable lumbar spine examination. ? Electronically signed by: ??Roman Jones MD ??03/28/2025 12:47 PM EDT RP ? Dictated By: ?Roman Jones MD ? Signed By: ?<Electronically signed by Roman Jones MD in OV> ?03/28/25 1247 ? DD/ 1200 ? TD/TT: 03/28/25 1212 ? Wrap Knitting Machine Operator: MSM ? Procedure Note Donjaclyn, Image - 03/28/[address] [address] XRay Report Signed Patient: Sonam WuR#: [id number] : 1990Acct:[id number] Age/Sex: 34 / FADM Date: 03/28/25 Loc: HO.HHCX Attending Dr: Nesas Kearns MD Ordering Physician: Nessa Kearns MD Date of Service: 03/28/25 Procedure(s): XR lumbar spine 2-3V Accession Number(s): [id number] cc: Nessa Kearns MD EXAMINATION: XR LUMBOSACRAL SPINE CLINICAL INFORMATION: fall down 13 starirs 2 days ago COMPARISON: None available. TECHNIQUE: Three views of the lumbosacral spine. FINDINGS: The vertebral bodies and posterior elements are normal. The disc spaces are preserved and the vertebral alignment is normal. The paraspinal soft tissues are normal. XR/XR lumbar spine 2-3V IMPRESSION: Unremarkable lumbar spine examination. Electronically signed by: Roman Jones MD 03/28/2025 12:47 PM EDT Dictated By: Roman Jones MD Signed By: <Electronically signed by Roman Jones MD in OV> 03/28/25 1247 DD/ 1200 TD/TT: 03/28/25 1212 Wrap Knitting Machine Operator: PERLA Nessa Kearns MD IMG XR PROCEDURES Final Re sult * Hm Pap Smear (06/09/2022) Pap Negative for intraephithelial lesion or malignancy Negative for intraephithelial lesion or malignancy, Other HPV Undetected Historical Provider HEALTH MAINTENANCE Final Result * HEPATITIS C AB W/REFL TO HCV RNA, QN, PCR (03/03/2022 10:34 AM EDT) HEPATITIS C ANTIBODY NON-REACT MARI NON-REACT MARI [facility] INDEX 0.02 <1.00 [facility] Comment: ?? HCV antibody was non-reactive. There is no laboratory ?? evidence of HCV infection. ?? In most cases, no further action is required. However, if recent HCV exposure is suspected, a test for HCV RNA (test code 32612) is suggested. ?? For additional information please refer to http://education.FamilyLeaf/faq/AGA52b2 (This link is being provided for informational/ educational purposes only.) ?? 03/03/2022 10:3 4 AM EDT Liliane CASTELLANOS HISTORICAL/NON ORDERABLE LABS Final Result [facility] [address] * HIV 1/2 ANTIGEN/ANTIBODY,FOURTH GENERATION W/RFL (03/03/2022 10:34 AM EDT) HIV-1/2 ANTIGEN AND ANTIBODIES, 4TH GENERATION W/ REFLEX NON-REACT MARI NON-REACT MARI [facility] Comment: HIV-1 antigen and HIV-1/HIV-2 [...] ? For additional information please refer to http://education.FamilyLeaf/faq/AMM366 (This link is being provided for informational/ educational purposes only.) ? The performance of this assay has not been clinically validated in patients less than 2 years old. ?? 03/03/2022 10:3 4 AM EDT Liliane Blake [facility] LAB BLOOD ORDERABLES Final Res ult [facility] [address] from Last 3 Months or Most Recently Relevant to Health Maintenance [facility] across global offices C3 Care Teams Vise Hand Relationship Specialty Start Date End Date Bessy Hawk MD [address] [place] [phone] PCP - General Family Medicine 10/20/16
--- OUTSIDE RECORDS SUMMARY | 2025-03-28 13:33 | XMS_ITS | Encounter Summary ---
Author Organization [employer] Address [address] [facility] 7t [place] [address] Care Team Providers Care Retail Coverage Merchandiser Name Role Phone Bessy Hawk MD Primary Care Provider + Encounter Details Date Type Department Care Team (Late st Contact Info) Description 03/28/2025 Telephone [facility] [address] [place], [place] [phone] Nessa Kearns MD 230 [place] [address] Social History Tobacco Use Types Packs/Day Years Used Date Smoking Tobacco: Never Smokeless Tobacco: Never Alcohol Use Standard Drinks/Week Comments Never 0 [...] AM EDT documented as of this encounter Miscellaneous Notes * Telephone Encounter - Arielle Busby RN - 03/28/2025 1:28 PM EDT TC placed to pt regarding message below per Dr. Kearns. Pt verbalized understanding. No questionsor concerns expressed at this time. Pt to F/U as needed. ----- Message from Nurse Enedina Shepherd sent at 03/28/2025 1:23 PM EDT ----- ----- Message ----- From: Nessa Kearns MD Sent: 03/28/2025 1:16 PM EDT To: [facility] Red Team Nurses Please let pt know xray of back was good. No fracture. Thank you. documented in this encounter Plan of Treatment Not on file documented as of this encounter Visit Diagnoses Not on filedocumented in this encounter Care Teams Retail Coverage Merchandiser Relationship Specialty Start Date End Date Bessy Hawk MD [address] [place] [phone] PCP - General Family Medicine 10/20/16 documented as of this encounter
--- OUTSIDE RECORDS SUMMARY | 2025-03-28 13:33 | XMS_ITS | Encounter Summary ---
Author Organization [employer] Address [address] [facility] [address] 7t [place] [address] Care Team Providers Care Substation Electrician Supervisor Name Role Phone Bessy Hawk MD Primary Care Provider + Encounter Details Date Type Department Care Team (Late st Contact Info) Description 03/28/2025 1:00 PM EDT Office Visit [facility] [address] [place] [address] [phone] Nessa Kearns MD [address] [place], [place] [phone] Acute midline low back pain without sciatica (Primary Dx); Fall, initial encounter Social History Tobacco Use Types Packs/Day Years [...] t he electric, gas, oil or water [employer] threatened to shut off services in your home? No 03/23/2024 Comments No Sex and Gender Information Value Date Recorded Sex Assigned at Female 09/22/2022 10:18 AM EDT Legal Sex Female 10:18 AM EDT Gender Identity Female 09/22/2022 10:18 AM EDT Sexual Orientation Straight 09/22/2022 10 :18 AM EDT documented as of this encounter Last Filed Vital Signs Vital Sign Reading [...] Mass Index 36.76 03/28/2025 11:45 AM EDT documented in this encounter Progress Notes * Nessa Kearns MD - 03/28/2025 1:00 PM EDT Images from the original note were not included. Subjective Patient ID: Chely Tinoco is a 34 y.o. female with past medical history of mild int asthmaand allergic rhinitis who presents to walk in clinic for back pain after a fall at home. Pt fell on to back and fell down 13 steps on her buttocks 2 days ago. The first day she felt sore and tight over lower back with pain. She took Naproxen and muscle cream. Now when puts fore has pain at tail bone. Pain is worse with cough and can't sleep on back. Review of Systems Musculoskeletal: Positive for back pain. Negative for gait problem, joint swelling, myalgias and neck pain. Objective Visit Vitals BP (!) 140/83 (BP Location: Left arm, Patient Position: Sitting, BP Cuff Size: Adult) Pulse 67 Temp 97.9 ??F (36.6 ??C) (Oral) Resp 16 Body mass index is 36.76 kg/m??. Physical Exam Musculoskeletal: Arms: Comments: Tenderness and faint bruise at top of gluteal cleft. 2+ patellar reflexes. Normal gait. No SI joint tenderness. XR today 03/28/25 IMPRESSION: Unremarkable lumbar spine examination. Problem List Items Addressed This Visit Acute midline low back pain without sciatica - Primary Likely musculoskeletal. Non-focal, normal motor exam without neurological deficits. No back pain red-flags: bowel/bladder incontinence, IVDU, urinary retention, saddle anesthesia, and significant motor deficits. -Recommend ibuprofen and muscle relaxer prn. Physical therapy referral offered. -Acupuncture clinicoffered. -Lifting precaution sand stretching reviewed. -ER precaution discussed. Relevant Medications cyclobenzaprine (Flexeril) 10 MG tablet naproxen (Naprosyn) 500 MG tablet Other Relevant Orders XR Lumbar Spine 2-3 Views (Completed) Other Visit Diagnoses Fall, initial encounter Relevant Medications cyclobenzaprine (Flexeril) 10 MG tablet naproxen (Naprosyn) 500 MG tablet Other Relevant Orders XR Lumbar Spine 2-3 Views (Completed) documented in this encounter Miscellaneous Notes * Assessment & Plan Note - Nessa Kearns MD - 03/28/2025 11:45 AM EDT Associated Problem(s): Acute midline low back pain without sciatica Likely musculoskeletal. Non-focal, normal motor exam without neurological deficits. No back pain red-flags: bowel/bladder incontinence, IVDU, urinary retention, saddle anesthesia, and significant motor deficits. -Recommend ibuprofen and muscle relaxer prn. Physical therapy referral offered. -Acupuncture clinicoffered. -Lifting precaution sand stretching reviewed. -ER precaution discussed. documented in this encounter Plan of Treatment Not on file documented as of this encounter Procedures Procedure Name Priority Date/Time Associated Diagnosis Comments XR LUMBAR SPINE 2-3 VIEWS Routine 03/28/2025 12:00 PM EDT Acute midline low back pain without sciatica Fall, initial encounter documented in this encounter Results * XR Lumbar Spine 2-3 Views (03/28/2025 12:00 PM EDT) Anatomical Region Laterality Modality Spine, L-spine Radiographic Heather ging 03/28/2025 12:0 0 PM EDT Narrative 03/28/2025 12:50 PM EDT ?[facility] ?[address] ?[place] [address] ?XRay Report ? Signed ? Patient: Grey Tinoco,Arylis ?MR#: ?? [id number] ? : 1990 ?Acct:[id number] ? Age/Sex: 34 / F ?ADM Date: 03/28/25 ? Loc: HO.HHCX ? Attending Dr: Nessa Kearns MD ? Ordering Physician: Nessa Kearns MD ?? Date of Service: 03/28/25 ?? Procedure(s): XR lumbar spine 2-3V ?? Accession Number(s): [id number] ? cc: Nessa Kearns MD ? EXAMINATION: [...] 12:47 PM EDT RP ? Dictated By: ?Karen,Roman S MD ? Signed By: ?<Electronically signed by Roman S Karen, MD in OV> ?03/28/25 1247 ? DD/ 1200 ? TD/TT: 03/28/25 1212 ? [employer]: MSM ? Procedure Note Yue Pryor - 03/28/2025 [facility] [address] [place] [address] XRay Report Signed Patient: Parveen Wu#: [id number] : 1990Acct:[id number] Age/Sex: 34 / FADM Date: 03/28/25 Loc: HO.HHCX Attending Dr: Nessa Kearns MD Ordering Physician: Nessa Kearns MD Date of Service: 03/28/25 Procedure(s): XR lumbar spine 2-3V Accession Number(s): [id number] cc: Nessa Kearns MD EXAMINATION: XR LUMBOSACRAL [...] Roman Jones MD 03/28/2025 12:47 PM EDT RP Dictated By: Roman Jones MD Signed By: <Electronically signed by Roman Jones MD in OV> 03/28/25 1247 DD/ 1200 TD/TT: 03/28/25 1212 [employer]: PERLA Nessa Kearns MD IMG XR PROCEDURES Final Re sult documented in this encounter Visit Diagnoses Diagnosis Acute midline low back pain without sciatica- Primary Fall, initial encounter documented in this encounter Care Teams Substation Electrician Supervisor Relationship Specialty Start Date End Date Bessy Hawk MD [address] [place] [phone] PCP - General Family Medicine 10/20/16 documented as of this encounter
--- OUTSIDE RECORDS SUMMARY | 2025-03-28 13:33 | XMS_ITS | Encounter Summary ---
Author Organization [employer] Address [address] [place] [address] 7 [place] [address] Care Team Providers Care Parts Finisher Name Role Phone Bessy Hawk MD Primary Care Provider + Reason for Visit * Reason Comments Med Refill Encounter Details Date Type Department Care Team (Late st Contact Info) Description 03/18/2024 Refill [facility] [address] [place], [place] [phone] Bessy Hawk MD 230 [place] [address] Social History Tobacco Use Types Packs/Day Years [...] on filedocumented in this encounter Care Teams Parts Finisher Relationship Specialty Start Date End Date Bessy Hawk MD [address] [place], [place] [phone] PCP - General Family Medicine 10/20/16 documented as of this encounter
--- OUTSIDE RECORDS SUMMARY | 2025-03-28 13:33 | XMS_ITS | Encounter Summary ---
Author Organization [employer] Address [address] [place] [address] 7t [place] [address] Care Team Providers Care Garment Tag Stringer Name Role Phone Bessy Hawk MD Primary Care Provider + Encounter Details Date Type Department Care Team (Late st Contact Info) Description 08/26/2023 Abstract [facility] [address] [place] [address] Richelle Bhardwaj Social History Tobacco Use Types [...] on filedocumented in this encounter Care Teams Garment Tag Stringer Relationship Specialty Start Date End Date Bessy Hawk MD 230 [place], [place] [phone] PCP - General Family Medicine 10/20/16 documented as of this encounter
--- OUTSIDE RECORDS SUMMARY | 2025-03-28 13:33 | XMS_ITS | Encounter Summary ---
Author Organization [employer] Address [address] [place] [address] 7t [place] [address] Care Team Providers Care Hydrogen Plant Operator Name Role Phone Bessy Hawk MD Primary Care Provider + Encounter Details Date Type Department Care Team (Late st Contact Info) Description 03/19/2023 Orders Only [facility] [address] [place], [place] [phone] Loly Busby LPN Social History Tobacco Use [...] on filedocumented in this encounter Care Teams Hydrogen Plant Operator Relationship Specialty Start Date End Date Bessy Hawk MD [address] [place] [address] PCP - General Family Medicine 10/20/16 documented as of this encounter
== END 2025-03-28 12:01 | disposition home or self-care (01) ==
LOC: HO.HHCX 12:00
PROVIDERS: Visit Provider Family Medicine
DX: M54.50 Low back pain, unspecified (principal); W19.XXXA Unspecified fall, initial encounter
CPT/HCPCS: 72100

== ENCOUNTER → 2025-03-28 12:00 | Outpatient (BNV) | payer MEDICAID, SELFPAY | PROVIDERS: Visit Provider Radiology Diagnostic Radiology | DX: M54.50 Low back pain, unspecified (principal) | CPT/HCPCS: 72100 ==

== ENCOUNTER 2025-06-22 08:40 | Outpatient (AMB) | payer MEDICAID, SELFPAY ==
--- NOTE | 2025-06-22 08:41 | MHC.OFFVIS ---
Vital Signs 06/22/25 08:46 Height 5 ft 2 in Weight 197 lb BMI 36.0 BP 120/76 Intake Visit Reasons: Heavy menses Bilingual Sales Representative Required: No Information Interpreted: non-clinical & clinical Accompanied by: Self / Same As Patient Allergies mushroom Allergy (Unknown, Verified 06/22/25 08:51) Unknown SHELLFISH Allergy (Severe, Uncoded 06/22/25 08:51) THROAT CLOSES, ITCHY HPI Comments Details: Presenting for follow-up. The patient did not continue control pills has been having irregular menstrual cycles associated with passage of blood clots over the last few months. The following be workup was done few months ago: H&H= 8.9/30.1 TSH, prolactin, hCG, GC and chlamydia were negative. Endometrial biopsy pathology showed the following: Proliferative endometrium; no atypia or hyperplasia identified Co testing was done in 06/13 was negative. Pelvic ultrasound showed the following: Uterus: The uterus is anteverted, anteflexed, and measures 9.2 x 4.8 x 5.9 cm. The cervix is normal with small nabothian cysts present. The double wall endometrial thickness is 10 mm. It is uniform without irregularity. Uterus is smooth in contour. There are 3 myometrial fibroid tumors. -A right lateral subserosal mid uterine segment fibroid measures 1.3 x 1.2 x 1.2 cm, (previously 1.8 x 1.4 x 1.6 cm). -A left lateral subserosal mid uterine segment fibroid measures 1.5 x 1.4 x 1.6 cm, (previously 2.1 x 1.7 x 2.0 cm). -A smaller midline ventral fundal submucosal fibroid measures 1.2 x 0.9 x 1.0 cm, and was not previously identified. Adnexa: Both ovaries are visualized. There is normal color flow to the adnexa. There is no ovarian torsion. There is no pelvic ascites or fluid collection. There are no adnexal masses. Right ovary measures 3.1 x 1.8 x 1.6 cm. Volume = 4.7 mL (previous volume = 3.7 mL). It is sonographically normal. Left ovary measures 3.0 x 3.0 x 1.7 cm. Volume = 8.0 mL (previous volume = 2.9 mL). 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 Sexual orientation: Straight/Heterosexual Gender identity: Female Female Reproductive History Menstrual Age of Menarche: 8 Review of Systems Const All systems reviewed & are unremarkable except as noted in HPI and below Reports as per HPI and Reports no additional complaints GI Reports no additional complaints Reports no additional complaints Results AMB Test Urine AMB Test Urine Negative Last Edit by Aggie Stern CMA on 06/22/25 08:55 Assessment & Plan Assessment & Plan (1) Uterine fibroid: Code(s): D25.9 - Leiomyoma of uterus, unspecified Category: Medical Qualifiers: Uterine leiomyoma location: unspecified location Qualified Code(s): D25.9 - Leiomyoma of uterus, unspecified Plan: Ultrasound ordered. Instructions given the patient is schedule an ultrasound follow-up appointment. (2) Abnormal uterine bleeding: Comment: Anemia Code(s): N93.9 - Abnormal uterine and vaginal bleeding, unspecified Category: Medical Plan: CBC repeat ordered. Discussed with the patient the results of the work up done and options of treatment including control pills , Mirena IUD, cyclic Provera. All pros, cons, risks and benefits if each option was discussed with the patient and the patient decided to go ahead with [facility] so a more detailed discussion re: control pills including mechanism of action, benefits (regular menses, less dysmenorrhea, less risk of ovarian cancer, ...), risks ( DVT, PE, Strokes, MO, ? increased breast ca, others). Instructions were given to use a back- up method for contraception x 1st 2 weeks, and to schedule a 3 months appointment for blood pressure check Orders: Orders AMB HCG Urine Test Today Z32.02 - Encounter for test, result negative US pelvic and transvaginal Today D25.9 - Leiomyoma of uterus, unspecified Medications: New desogestrel-ethinyl estradiol 0.15-0.03 mg (Apri) 1 tab PO DAILY 84 tabs 0RF 28 days Coding Level of Care Code Est Pt Level 3 (13313) Diagnoses Uterine leiomyoma, unspecified location D25.9 Uterine leiomyoma location: unspecified location Abnormal uterine bleeding N93.9
[2025-06-22 08:46] VITALS: BP 120/76; BMI 36.0
--- OUTSIDE RECORDS SUMMARY | 2025-06-22 08:49 | XMS_ITS | Encounter Summary ---
Author Organization [employer] Address [address] [facility] 7t [place] [address] Care Team Providers Care Desulfurizer Hand Name Role Phone Bessy Hawk MD Primary Care Provider + Reason for Visit * Reason Comments Med Refill Encounter Details Date Type Department Care Team (Late st Contact Info) Description 04/24/2025 Refill [facility] [address] [place], [place] [phone] Nessa Kearns MD [address] [place], [place] [phone] Acute midline low back pain without sciatica; Fall, initial encounter Social History Tobacco Use [...] as of this encounter Plan of Treatment Upcoming Encounters Date Type Department Care Team (Late st Contact Info) Description 07/10/2025 3:45 PM EDT Office Visit [facility] [address] [place] [address] Bessy Hawk MD [address] [place] [phone] documented as of this encounter Visit Diagnoses Diagnosis Acute midline low back pain without sciatica Fall, initial encounter documented in this encounter Care Teams Desulfurizer Hand Relationship Specialty Start Date End Date Bessy Hawk MD [address] [place] [phone] PCP - General Family Medicine 10/20/16 documented as of this encounter
--- OUTSIDE RECORDS SUMMARY | 2025-06-22 08:50 | XMS_ITS | Clinical Summary ---
Author Organization [facility] Address [address] [place] [address] Care Team Providers Care Business Services Director Name Role Phone Unavailable Primary Care Provider [...] Vaccine ( - 2023-2 5 season) 2024 Depression Screening 11/23/2024 Influenza Vaccine (#1) 2025 HIB Vaccines Aged Out No longer eligi [...] age to complete this topic Meningococcal B Vaccine Aged Out No l onger eligible based on patient's age to complete this topic Pneumococcal Vaccine: Pediat rics (0 to 5 Years) and At-Risk Patients (6 to 49 Years) Aged Out No longer eligible b ased on patient's age to complete this topic RSV Immunization Patients Un cristobal 20 months Aged Out No longer eligible b ased on patient's age to complete this topic Varicella Vaccines Aged Out No longer eligible based on patient's age to complete this topic
== END 2025-06-22 09:10 | disposition home or self-care (01) ==
LOC: HO.HWS 08:40
PROVIDERS: PCP Internal Medicine; Visit Provider Obstetrics & Gynecology
DX: D25.9 Leiomyoma of uterus, unspecified (principal); N93.9 Abnormal uterine and vaginal bleeding, unspecified; Z32.02 Encounter for pregnancy test, result negative
CPT/HCPCS: 99213

== ENCOUNTER 2025-06-22 08:40 | Outpatient (REF) | payer MEDICAID, SELFPAY ==
[2025-06-22 09:43] LABS: Hematocrit 28.6 % (37.0-47.0); Hemoglobin 8.3 g/dl (12.0-16.0); Mean Corpuscular HGB Conc 29.0 g/dl (31.0-35.0); Mean Corpuscular Hemoglobin 18.4 pg (27.0-33.0); NRBC Abs Auto 0.000 X10*3/uL (0.0-0.012); NRBC Pct Auto 0.0 /100WBC (0.0-0.2); Platelet Count 307 X10*3/uL (160-400); Red Blood Count 4.52 X10*6/uL (4.20-5.50); White Blood Count 7.5 X10*3/uL (4.8-10.8)
[2025-06-22 09:44] LABS: Mean Corpuscular Volume 63.3 fL (80.0-98.0)
== END 2025-06-22 08:41 | disposition home or self-care (01) ==
LOC: HO.LAB 08:40
PROVIDERS: PCP Internal Medicine; Visit Provider Obstetrics & Gynecology
DX: N92.1 Excessive and frequent menstruation with irregular cycle (principal); N93.9 Abnormal uterine and vaginal bleeding, unspecified; Z32.02 Encounter for pregnancy test, result negative; D25.9 Leiomyoma of uterus, unspecified; D64.9 Anemia, unspecified; Z98.51 Tubal ligation status
CPT/HCPCS: 36415; 81025; 85027; 99212

== ENCOUNTER 2025-07-07 12:47 | Outpatient (REF) | payer OTHER, SELFPAY ==
--- NOTE | ~2025-07-07 | US_ITS ---
EXAMINATION: US PELVIS TRANSABDOMINAL AND TRANSVAGINAL HISTORY: D25.9 - Leiomyoma of uterus, unspecified COMPARISON: Comparison is made with the prior examination dated 09/12/2024. TECHNIQUE: Transabdominal and endovaginal real-time 2D israel-scale ultrasound was performed. FINDINGS: Uterus: The uterus is normal in size, measuring 8.3 x 5.8 x 5.6 cm. Myometrium has a normal echotexture. Again seen is a fundal fibroid measuring 9 x 8 x 9 mm (previously 12 x 9 x 10 mm), a right-sided fibroid measuring 14 x 15 x 16 mm (previously 13 x 12 x 12 mm), and a left-sided fibroid measuring 16 x 20 x 14 mm (previously 15 x 14 x 16 mm). Endometrium: The endometrial stripe measures 14 mm in thickness. There is fluid in the endometrial canal. There are nabothian cysts in the cervix. Right ovary: The right ovary measures 2.8 x 2.4 x 2.7 cm. The right ovary is normal in size and echotexture. Left ovary: The left ovary measures 3.0 x 1.3 x 1.6 cm. The left ovary is normal in size and echotexture. Pelvic fluid: none. US/US pelvic and transvaginal IMPRESSION: Fibroid uterus as described. Fluid in the endometrial canal. Electronically signed by: Stewart Bustos MD 07/07/2025 01:19 PM EDT
--- OUTSIDE RECORDS SUMMARY | 2025-07-07 12:50 | XMS_ITS | Encounter Summary ---
Author Organization [employer] Address [address] [facility] 7t [place] [address] Care Team Providers Care Optimization Specialist Name Role Phone Bessy Hawk MD Primary Care Provider + Reason for Visit * Reason Comments Med Refill Encounter Details Date Type Department Care Team (Late st Contact Info) Description 04/24/2025 Refill [facility] [address] [place], [place] [phone] Nessa Kearns MD [address] [place], [place] [phone] Acute midline low back pain without sciatica; [...] Description 07/10/2025 3:45 PM EDT Office Visit [facility] [address] [place] [address] Bessy Hawk MD [address] [place] [phone] documented as of this encounter Visit Diagnoses Diagnosis Acute midline low back pain without sciatica Fall, initial encounter documented in this encounter Care Teams Optimization Specialist Relationship Specialty Start Date End Date Bessy Hawk MD [address] [place] [phone] PCP - General Family Medicine 10/20/16 documented as of this encounter
--- OUTSIDE RECORDS SUMMARY | 2025-07-07 12:50 | XMS_ITS | Clinical Summary ---
Author Organization [facility] Address [address] [place] [address] Care Team Providers Care Vocal Music Teacher Name Role Phone Unavailable Primary Care Provider [...]
== END 2025-07-07 12:48 | disposition home or self-care (01) ==
LOC: HO.HMGCX 12:47
PROVIDERS: PCP Internal Medicine; Visit Provider Obstetrics & Gynecology
DX: D25.9 Leiomyoma of uterus, unspecified (principal)
CPT/HCPCS: 76830; 76856

== ENCOUNTER → 2025-07-07 12:51 | Outpatient (BNV) | payer OTHER, SELFPAY | PROVIDERS: PCP Internal Medicine; Visit Provider Radiology Diagnostic Radiology | DX: D25.9 Leiomyoma of uterus, unspecified (principal) | CPT/HCPCS: 76830; 76856 ==

== ENCOUNTER 2025-07-18 12:07 | Outpatient (AMB) | payer MEDICAID, SELFPAY ==
--- NOTE | 2025-07-18 12:08 | MHC.OFFVIS ---
Vital Signs 07/18/25 12:10 Height 5 ft 2 in Weight 197 lb BMI 36.0 Intake Visit Reasons: ultrasound results Equipment Maintenance Tech Required: No Information Interpreted: non-clinical & clinical Accompanied by: Self / Same As Patient Allergies mushroom Allergy (Unknown, Verified 07/18/25 12:11) Unknown SHELLFISH Allergy (Severe, Uncoded 07/18/25 12:11) THROAT CLOSES, ITCHY HPI Comments Details: Presenting for pelvic ultrasound follow-up done recently showed the following: Uterus: The uterus is normal in size, measuring 8.3 x 5.8 x 5.6 cm. Myometrium has a normal echotexture. Again seen is a fundal fibroid measuring 9 x 8 x 9 mm (previously 12 x 9 x 10 mm), a right-sided fibroid measuring 14 x 15 x 16 mm (previously 13 x 12 x 12 mm), and a left-sided fibroid measuring 16 x 20 x 14 mm (previously 15 x 14 x 16 mm). Endometrium: The endometrial stripe measures 14 mm in thickness. There is fluid in the endometrial canal. There are nabothian cysts in the cervix. Right ovary: The right ovary measures 2.8 x 2.4 x 2.7 cm. The right ovary is normal in size and echotexture. Left ovary: The left ovary measures 3.0 x 1.3 x 1.6 cm. The left ovary is normal in size and echotexture. Pelvic fluid: none. 06/22 H&H 8.3/28.6 since then the patient started taking Apri, an iron sulfate 325 mg p.o. t.i.d. 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 Sexual orientation: Straight/Heterosexual Gender identity: Female Female Reproductive History Menstrual Age of Menarche: 8 Review of Systems Const All systems reviewed & are unremarkable except as noted in HPI and below Reports as per HPI and Reports no additional complaints GI Reports no additional complaints Reports no additional complaints Assessment & Plan Assessment & Plan (1) Uterine fibroid: Code(s): D25.9 - Leiomyoma of uterus, unspecified Category: Medical Qualifiers: Uterine leiomyoma location: unspecified location Qualified Code(s): D25.9 - Leiomyoma of uterus, unspecified Plan: Discussed with the patient the findings on pelvic ultrasound & the risk of myosarcoma; in addition reviewed with the patient that malignancy and pre malignancy cannot be ruled out without hysterectomy for pathological evaluation ; furthermore, explained to the patient the limitation of pelvic ultrasound and endometrial biopsy in the setting. Discussed with the patient the options of treatment including expectant management versus hysterectomy; the pros and cons, risks benefits of each approach were discussed with the patient including the fact that in cases of myosarcoma, surgical treatment can lead to early diagnosis and positively affects the prognosis; after further discussion, the patient decided to proceed with expectant management. Will repeat pelvic ultrasound periodically. Instructions given to patient to call in case any of the following occurs: pressure symptoms, abnormal uterine bleeding, pelvic pain; and to schedule a 12 months pelvic ultrasound (order placed) and a follow-up appointment . All questions answered, the patient verbalized understanding and agreed with the plan . (2) Abnormal uterine bleeding: Comment: Anemia Code(s): N93.9 - Abnormal uterine and vaginal bleeding, unspecified Category: Medical Plan: Instructions given the patient to keep taking iron sulfate 325 mg p.o. t.i.d. with a pre daily and repeat CBC in 2 months in addition to call or go to emergency room in case of heavy vaginal bleeding. All questions answered, the patient verbalized understanding Orders: Orders Complete Blood Count no Diff 2 Months N93.9 - Abnormal uterine and vaginal bleeding, unspecified US pelvic and transvaginal 12 Months D25.9 - Leiomyoma of uterus, unspecified Coding Level of Care Code Est Pt Level 3 (85568) Diagnoses Uterine leiomyoma, unspecified location D25.9 Uterine leiomyoma location: unspecified location Abnormal uterine bleeding N93.9
[2025-07-18 12:10] VITALS: BMI 36.0
--- OUTSIDE RECORDS SUMMARY | 2025-07-18 13:02 | XMS_ITS | Encounter Summary ---
Author Organization [employer] Address [address] [place] [address] [address] [place] [address] Care Team Providers Care Floor Care Technician Name Role Phone Bessy Hawk MD Primary Care Provider + Reason for Visit * Reason Comments Med Refill Encounter Details Date Type Department Care Team (Late st Contact Info) Description 03/18/2024 Refill [facility] [address] [place], [place] [phone] Bessy Hawk MD [address] [place] [address] Social History Tobacco Use Types Packs/Day Years [...] on filedocumented in this encounter Care Teams Floor Care Technician Relationship Specialty Start Date End Date Bessy Hawk MD [address] [place], [place] [phone] PCP - General Family Medicine 10/20/16 documented as of this encounter
--- OUTSIDE RECORDS SUMMARY | 2025-07-18 13:02 | XMS_ITS | Clinical Summary ---
Author Organization [employer] Address [address] [place] [address] [address] [place] [address] Care Team Providers Care Electronics System Mechanic Name Role Phone Bessy Hawk MD Primary [...] Encounters Date Type Department Care Team Description 07/10/2025 3:45 PM EDT Office Visit [facility] [address] [place] [phone] Bessy Hawk MD Herpes simplex type 2 infection (Primary Dx); Mild intermittent asthma, unspecified whether complicated; Iron deficiency anemia due to chronic blood loss; Dietary counseling; Exercise counseling; Class 2 obesity due to excess calories without serious comorbidity with body mass index (BMI) of 36.0 to 36.9 in adult 07/10/2025 Travel 07/07/2025 Telephone [facility] [address] [place] [phone] Bessy Hawk MD Chart Prep 07/07/2025 Orders Only [facility] External Provider, [facility] 07/03/2025 Travel 06/30/2025 Patient Outreach [address] [phone] Bessy Hawk MD Pre-visit Planning ((Unable to reach for PVP screening, LVM) to be completed in office ) 06/30/2025 Patient Outreach [facility] [address] [place] [phone] Bessy Hawk MD 05/02/[address] [phone] Bessy Hawk MD Appointment Request 04/24/2025 Refill [facility] [address] [place] [phone] Nessa Kearns MD Acute midline low back pain without sciatica; Fall, initial encounter from Last 3 Months Immunizations Immunization Administration Dates Next Due DTP 05/09/1992, 0,1988,10/06,1988 [...] drink = 0.6 oz pur e alcohol) Depression Answer Date Recorded Patient Health Questionnaire-9 Score 1 07/10/2025 Patient Health Questionnaire-9 Score 1 07/10/2025 Last PHQ-9: Questionnaire Data Not on file 0 07/10/2025 Housing Stability Answer Date Recorded What is your housing situation today? I have ana aguilar 07/10/[address] you li ve. Do you have problems with any of the following? None of the above 07/10/2025 Food Insecurity Answer Date Recorded Within the past 12 months, y ou worried that your food would run out before you got money to buy more: Never True 07/10/2025 Within the past 12 months,th e food you bought just didn't last and you didn't have enough money to get more: Never True Transportation Answer Date Recorded In the past 12 months, has l ack of transportation kept you from medical appts, meetings, work or from getting things needed for daily living? No 07/10/2025 Utilities Answer Date Recorded In the past 12 months, has t he electric, gas, oil or water company threatened to shut off services in your home? No 07/10/2025 Depression Answer Date Recorded Patient Health Questionnaire-2 Score 0 07/10/2025 Internet Access Answer Date Recorded Internet Access Q1 Yes 07/10/2025 Internet Access Q2 Not on file 07/10/2025 Comments No Sex and Gender Information Value Date Recorded Sex Assigned at Female 09/22/2022 10:18 AM EDT Legal Sex Female 10:18 AM EDT Gender Identity Female 09/22/2022 10:18 AM EDT Sexual Orientation Straight 09/22/2022 10 :18 AM EDT Last Filed Vital Signs Vital Sign Reading Time Taken Comments Blood Pressure 128/78 07/10/2025 3:55 PM EDT Pulse 70 07/10/2025 3:55 PM EDT Temperature 37.1 C (98.7 F) 07/10/2025 3:55 PM EDT Respiratory Rate 18 07/10/2025 3:55 PM EDT Oxygen Saturation 98% 07/10/2025 3:55 PM EDT Inhaled Oxygen Concentration - - Weight 90.7 kg (200 lb) 07/10/2025 3:55 PM EDT Height 157.5 cm (5' 2 ) 07/10/2025 3:55 PM EDT Body Mass Index 36.58 07/10/2025 3:55 PM EDT Plan of Treatment Health Maintenance Due Date Last Done Comments Family Planning (PISQ) 2003 COVID-19 Vaccine ( season) 2024 03/03/2022, 08/13/2021, 07/19/2021 Influenza Vaccine (#1) 2025 , 09/21/2021, 09/05/2020, Additional history exists Alcohol/Substance Use Screening 07/10/2026 07/10/2025 Depression Screening 07/10/2026 07/10/2025, 07/10/20 25 Disability Screening 07/10/2026 07/10/2025 SDOH Screening 07/10/2026 07/10/2025 Tobacco Screening 07/10/2026 07/10/2025 Cervical Cancer Screening 06/09/2027 HPV/Cotest 06/09/2027 06/09/2022, 05/23, 06/09/2022 Pap Smear 06/09/2027 06/09/2022 Lipid Panel 04/24/2028 04/24/2023, 11/12/2022 DTaP/Tdap/Td Vaccines (8 - Td or Tdap) [...] Years) and At-Risk Patients (6 to 49) Years Completed 04/01/2024, 11/20/2014 Hepatitis B Vaccines Completed [...] Procedure Name Priority Date/Time Associated Diagnosis Comments US PELVIS TRANSVAGINAL Routine 07/07/2025 12:53 PM EDT PATHOLOGIST REVIEW - CBC Routine 06/22/2025 9:31 AM EDT CBC Routine 06/22/2025 9:31 AM EDT LIPID PANEL, STANDARD Routine 04/24/2023 11:05 AM EDT Fatigue, unspecified type HM PAP/HPV Routine 06/09/2022 ZZZ HISTORICAL HEPATITIS C AB W/REFL TO HCV RNA, QN, PCR Routine 03/03/2022 10:34 AM EDT HIV 1/2 ANTIGEN/ANTIBODY, FOURTH GENERATION W/RFL Routine 03/03/2022 10:34 AM EDT from Last 3 Months or Most Recently Relevant to Health Maintenance Results * US Pelvis Transvaginal (07/07/2025 12:53 PM EDT) Anatomical Region Laterality Modality Pelvis Ultrasound 07/07/2025 12:5 3 PM EDT Narrative 07/07/2025 1:22 PM EDT [facility] [place] [address] Ultrasound Report Signed Patient: Chely Wu MR#: [id number] : 1990 Acct:[id number] Age/Sex: 35 / F ADM Date: 07/07/25 Loc: HO.HMGCX Attending Dr: Bautista Bullock MD Ordering Physician: Bautista Bullock MD Date of Service: 07/07/25 Procedure(s): US pelvic and transvaginal Accession Number(s): [id number] cc: Bessy Hawk MD; Bautista Bullock MD EXAMINATION: US PELVIS TRANSABDOMINAL AND TRANSVAGINAL HISTORY: D25.9 - Leiomyoma of uterus, unspecified COMPARISON: Comparison is made with the prior examination dated 09/12/2024. TECHNIQUE: Transabdominal and endovaginal real-time 2D israel-scale ultrasound was performed. FINDINGS: Uterus: The uterus is normal in size, measuring 8.3 x 5.8 x 5.6 cm. Myometrium has a normal echotexture. Again seen is a fundal fibroid measuring 9 x 8 x 9 mm (previously 12 x 9 x 10 mm), a right-sided fibroid measuring 14 x 15 x 16 mm (previously 13 x 12 x 12 mm), and a left-sided fibroid measuring 16 x 20 x 14 mm (previously 15 x 14 x 16 mm). Endometrium: The endometrial stripe measures 14 mm in thickness. There is fluid in the endometrial canal. There are nabothian cysts in the cervix. Right ovary: The right ovary measures 2.8 x 2.4 x 2.7 cm. The right ovary is normal in size and echotexture. Left ovary: The left ovary measures 3.0 x 1.3 x 1.6 cm. The left ovary is normal in size and echotexture. Pelvic fluid: none. US/US pelvic and transvaginal IMPRESSION: Fibroid uterus as described. Fluid in the endometrial canal. Electronically signed by: Stewart Bustos MD 07/07/2025 01:19 PM EDT Dictated By: Stewart Bustos MD Signed By: <Electronically signed by Stewart Bustos MD in OV> 07/07/25 1319 DD/ 1253 TD/TT: 07/07/25 1307 Paper Folding Machine Operator: Procedure Note Donotuseinterpreter, Image - 07/07/2025 [facility] [place] [place] [facility] [place] [address] Ultrasound Report Signed Patient: Parveen Wu#: [id number] : 1990Acct:[id number] Age/Sex: 35 / FADM Date: 07/07/25 Loc: HO.HMGCX Attending Dr: Bautista Bullock MD Ordering Physician: Bautista Bullock MD Date of Service: 07/07/25 Procedure(s): US pelvic and transvaginal Accession Number(s): [id number] cc: Bessy Hawk MD; Bautista Bullock MD EXAMINATION: US PELVIS TRANSABDOMINAL AND TRANSVAGINAL HISTORY: D25.9 - Leiomyoma of uterus, unspecified COMPARISON: Comparison is made with the prior examination dated 09/12/2024. TECHNIQUE: Transabdominal and endovaginal real-time 2D israel-scale ultrasound was performed. FINDINGS: Uterus: The uterus is normal in size, measuring 8.3 x 5.8 x 5.6 cm. Myometrium has a normal echotexture. Again seen is a fundal fibroid measuring 9 x 8 x 9 mm (previously 12 x 9 x 10 mm), a right-sided fibroid measuring 14 x 15 x 16 mm (previously 13 x 12 x 12 mm), and a left-sided fibroid measuring 16 x 20 x 14 mm (previously 15 x 14 x 16 mm). Endometrium: The endometrial stripe measures 14 mm in thickness. There is fluid in the endometrial canal. There are nabothian cysts in the cervix. Right ovary: The right ovary measures 2.8 x 2.4 x 2.7 cm. The right ovary is normal in size and echotexture. Left ovary: The left ovary measures 3.0 x 1.3 x 1.6 cm. The left ovary is normal in size and echotexture. Pelvic fluid: none. US/US pelvic and transvaginal IMPRESSION: Fibroid uterus as described. Fluid in the endometrial canal. Electronically signed by: Stewart Bustos MD 07/07/2025 01:19 PM EDT Dictated By: Stewart Bustos MD Signed By: <Electronically signed by Stewart Bustos MD in OV> 07/07/25 1319 DD/ 1253 TD/TT: 07/07/25 1307 Paper Folding Machine Operator: us [facility] External Provider IMG US PROCEDURES Final Result * Pathologist Review - CBC (06/22/2025 9:31 AM EDT) Pathologist Review - CBC SEE NOTE [facility] Comment:Variably hypochromic microcytic anemia; elliptocytes arepresent. Please correlate with iron studies.- Lefty Lozoya M.D. Pathology 06/22/2025 9:31 AM EDT 06/22/2025 9:31 AM EDT us Generic External Data Provider LAB BLOOD ORDERAB LES Final Result [facility] [address] [place] [phone] * (ABNORMAL) CBC (06/22/2025 9:31 AM EDT) White Blood Count 7.5 4.8 - 10.8 X10*3/uL [facility] Red Blood Count 4.52 4.20 - 5.50 X10*6/uL [facility] Hemoglobin 8.3(L) 12.0 - 16.0 g/dl [facility] Hematocrit 28.6(L) 37.0 - 47.0 % [facility] Mean Corpuscular Volume 63.3(L) 80.0 - 98.0 fL [facility] Mean Corpuscular Hemoglobin 18.4(L) 27.0 - 33.0 pg [facility] Mean Corpuscular HGB Conc 29.0(L) 31.0 - 35.0 g/dl [facility] Red Cell Distribution Width 18.7(H) 11.0 - 16.0 % [facility] Platelet Count 307 160 - 400 X10*3/uL [facility] Mean Platelet Volume 9.4 9.4 - 12.3 fL [facility] NRBC Pct Auto 0.0 0.0 - 0.2 /100WBC [facility] NRBC Abs Auto 0.000 0.0 - 0.012 X10*3/uL [facility] 06/22/2025 9:31 AM EDT 06/22/2025 9:31 AM EDT Generic External Data Provider LAB BLOOD ORDERAB LES Final Result Performing Organization Address City/[facility]/ZIP Co de Phone Number [facility] [address] [place] [address] [phone] * (ABNORMAL) Lipid Panel, Standard (04/24/2023 11:05 AM EDT) Cholesterol, Total 179 <200 mg/dL [facility] HDL Cholesterol 54 > OR = 50 mg/dL [facility] Triglycerides 100 <150 mg/dL [facility] LDL Cholesterol 105(H) mg/dL (calc) [facility] Comment: Reference range: <100 Desirable range <100 mg/dL for primary prevention; <70 mg/dL for patients with CHD or diabetic patients with > or = 2 CHD risk factors. LDL-C is now calculated using the Jose calculation, which is a validated novel method providing better accuracy than the Friedewald equation in the estimation of LDL-C. Heron SS et al. IFEOMA. 2013;310(19): 6418-2506 (http://education.Milestone Software/faq/VGS150) Chol/HDLC Ratio 3.3 <5.0 (calc) [facility] Non-HDL Cholesterol 125 <130 mg/dL (calc) [facility] Comment: For patients with diabetes plus 1 major ASCVD risk factor, treating to a non-HDL-C goal of <100 mg/dL (LDL-C of <70 mg/dL) is considered a therapeutic option. Blood Venous blood specimen / Unknown 04/24/2023 11:05 AM EDT 04/24/2023 11:05 AM EDT Narrative [facility] - 04/27/2023 11:14 AM EDT FASTING:NO FASTING: NO Amaris Soriano DO LAB BLOOD ORDERABLES Final R esult [facility] [address], [place] [address] [facility] [address] [place] [phone] * Hm Pap Smear (06/09/2022) Pathologist [facility] [place] Pap Negative for intraephithelial lesion or malignancy Negative for intraephithelial lesion or malignancy, Other HPV Undetected Historical Provider MD HEALTH MAINTENANCE Final Result * HEPATITIS C AB W/REFL TO HCV RNA, QN, PCR (03/03/2022 10:34 AM EDT) Pathologist [facility] [place] HEPATITIS C ANTIBODY NON-REACT MARI NON-REACT MARI [facility] INDEX 0.02 <1.00 [facility] Comment: HCV antibody was non-reactive. There is no laboratory evidence of HCV infection. In most cases, no further action is required. However, if recent HCV exposure is suspected, a test for HCV RNA (test code 01327) is suggested. For additional information please refer to http://education.Kalido/faq/GAF03h6 (This link is being provided for informational/ educational purposes only.) 03/03/2022 10:3 4 AM EDT Liliane CASTELLANOS HISTORICAL/NON ORDERABLE LABS Final Result [facility] [address] * HIV 1/2 ANTIGEN/ANTIBODY,FOURTH GENERATION W/RFL (03/03/2022 10:34 AM EDT) Pathologist [facility] [place] HIV-1/2 ANTIGEN AND ANTIBODIES, 4TH GENERATION W/ REFLEX NON-REACT MARI NON-REACT MARI [facility] Comment: HIV-1 antigen and HIV-1/HIV-2 antibodies were not detected. There is no laboratory evidence of HIV infection. PLEASE NOTE: This information has been disclosed to you from records whose confidentiality may be protected by state law. If your state requires such protection, then the state law prohibits you from making any further disclosure of the information without the specific written consent of the person to whom it pertains, or as otherwise permitted by law. A general authorization for the release of medical or other information is NOT sufficient for this purpose. For additional information please refer to http://education.Bazaarvoice.Tellme/faq/FYG240 (This link is being provided for informational/ educational purposes only.) The performance of this assay has not been clinically validated in patients less than 2 years old. 03/03/2022 10:3 4 AM EDT us Liliane Blake JUNIOR SYSTEMS ENGINEER LAB BLOOD ORDERABLES Final Res ult [facility] [address] from Last 3 Months or Most Recently Relevant to Health Maintenance [place] [address] [place] [address] [facility] [facility] PPO Care Teams Electronics System Mechanic Relationship Specialty Start Date End Date Bessy Hawk MD [address] [place] [phone] PCP - General Family Medicine 10/20/16
--- OUTSIDE RECORDS SUMMARY | 2025-07-18 13:02 | XMS_ITS | Clinical Summary ---
Author Organization [employer] [facility] Address [address] [place] [address] Care Team Providers Care Electrician Shop Name Role Phone Unavailable Primary Care Provider [...]
--- OUTSIDE RECORDS SUMMARY | 2025-07-18 13:02 | XMS_ITS | Encounter Summary ---
Author Organization [employer] Address [address] [facility] 7t [place] [address] Care Team Providers Care Control Clerk Repairs Name Role Phone Bessy Hawk MD Primary Care Provider + Reason for Visit * Reason Comments Med Refill Encounter Details Date Type Department Care Team (Late st Contact Info) Description 04/24/2025 Refill [facility] [address] [place], [place] [phone] Nessa Kearns MD [address] [place], [place] [phone] Acute midline low back pain without sciatica; [...] encounter documented in this encounter Care Teams Control Clerk Repairs Relationship Specialty Start Date End Date Bessy Hawk MD [address] [place] [phone] PCP - General Family Medicine 10/20/16 documented as of this encounter
--- OUTSIDE RECORDS SUMMARY | 2025-07-18 13:02 | XMS_ITS | Encounter Summary ---
Author Organization [facility] Address [address] [place] [address] 7t [place] [address] Care Team Providers Care Journeyman Patternmaker Name Role Phone Bessy Hawk MD Primary Care Provider + Encounter Details Date Type Department Care Team (Late st Contact Info) Description 08/26/2023 Abstract [facility] [address] [place], [place] [phone] Richelle Bhardwaj Social History Tobacco Use Types [...] on filedocumented in this encounter Care Teams Journeyman Patternmaker Relationship Specialty Start Date End Date Bessy Hawk MD [address] [place], [place] [phone] PCP - General Family Medicine 10/20/16 documented as of this encounter
--- OUTSIDE RECORDS SUMMARY | 2025-07-18 13:02 | XMS_ITS | Encounter Summary ---
Author Organization [employer] Address [address] [place] [address] [address] [place] [address] Care Team Providers Care Tie Tamper Name Role Phone Bessy Hawk MD Primary Care Provider + Encounter Details Date Type Department Care Team ([facility] st Contact Info) Description 03/19/2023 Orders Only [facility] [address] [place] [address] Loly Busby LPN Social History Tobacco Use [...] on filedocumented in this encounter Care Teams Tie Tamper Relationship Specialty Start Date End Date Bessy Hawk MD [address] [place] [address] PCP - General Family Medicine 10/20/16 documented as of this encounter
== END 2025-07-18 12:19 | disposition home or self-care (01) ==
LOC: HO.HWS 12:08
PROVIDERS: PCP Internal Medicine; Visit Provider Obstetrics & Gynecology
DX: D25.9 Leiomyoma of uterus, unspecified (principal); N93.9 Abnormal uterine and vaginal bleeding, unspecified
CPT/HCPCS: 99213

== ENCOUNTER → 2025-07-18 12:07 | Outpatient (BNVA) | payer MEDICAID, SELFPAY | PROVIDERS: PCP Internal Medicine; Visit Provider Obstetrics & Gynecology | DX: N93.9 Abnormal uterine and vaginal bleeding, unspecified (principal); D25.9 Leiomyoma of uterus, unspecified | CPT/HCPCS: 99212 ==

== ENCOUNTER 2025-08-15 11:12 | Outpatient (REF) | payer OTHER, SELFPAY ==
[2025-08-15 16:11] LABS: Hematocrit 33.4 % (37.0-47.0); Hemoglobin 10.0 g/dl (12.0-16.0); Mean Corpuscular HGB Conc 29.9 g/dl (31.0-35.0); Mean Corpuscular Hemoglobin 22.0 pg (27.0-33.0); Mean Corpuscular Volume 73.4 fL (80.0-98.0); NRBC Abs Auto 0.000 X10*3/uL (0.0-0.012); NRBC Pct Auto 0.0 /100WBC (0.0-0.2); PLT CLUMP 1; Red Blood Count 4.55 X10*6/uL (4.20-5.50)
[2025-08-15 16:12] LABS: Platelet Count 202 X10*3/uL (160-400); White Blood Count 8.0 X10*3/uL (4.8-10.8)
[2025-08-15 16:23] LABS: Cholesterol 198 mg/dL (<200); HDL Cholesterol 57 mg/dL (>40); Triglycerides 133 mg/dL (<150)
[2025-08-15 20:34] LABS: Reflex LDLD? No
[2025-08-16 02:58] LABS: CT PCR NOT DETECTED (Not Detect.); NG PCR NOT DETECTED (Not Detect.)
[2025-08-16 08:38] LABS: HBS Num1 > 1000.00 mIU/mL (0-7.99); HBc Num1 0.70 S/CO (0.00-0.79); HBsAGNum1 0.35 S/CO (0.00-0.99); HIV Num 1 0.06 S/CO (0.00-0.99); Hepatitis A Antibody IgM 0.16 Index (0-0.79); Hepatitis B Surface Antigen Negative (Negative); ~HepC Num1 0.18 S/CO (0.00-0.79); ~Hepatitis A Antibody IgM Nonreactive (Nonreactive); ~Hepatitis B Surface Antibody REACTIVE (Nonreactive); ~Hepatitis C Antibody Nonreactive (Nonreactive)
[2025-08-16 09:16] LABS: Syphilis Screen Nonreactive (Nonreactive)
== END 2025-08-15 11:13 | disposition home or self-care (01) ==
LOC: HO.LAB 11:12
PROVIDERS: PCP Internal Medicine; Visit Provider Obstetrics & Gynecology
DX: N93.9 Abnormal uterine and vaginal bleeding, unspecified (principal); D50.0 Iron deficiency anemia secondary to blood loss (chronic); B00.9 Herpesviral infection, unspecified; E66.812 Obesity, class 2; Z68.36 Body mass index [BMI] 36.0-36.9, adult; Z98.51 Tubal ligation status; Z11.4 Encounter for screening for human immunodeficiency virus [HIV]; Z11.59 Encounter for screening for other viral diseases; Z13.29 Encounter for screening for other suspected endocrine disorder
CPT/HCPCS: 36415; 58100; 80061; 81025; 82306; 84443; 85027; 86704; 86706; 86709; 86780; 86803; 87340; 87389; 87491; 87591; 88305

== ENCOUNTER 2025-08-15 11:12 | Outpatient (AMB) | payer OTHER, SELFPAY ==
--- NOTE | 2025-08-15 11:14 | A.OFFVIS_ITS ---
Vital Signs 08/15/25 11:16 Height 5 ft 2 in Weight 197 lb BMI 36.0 Intake Visit Reasons: Bleeding with control pills Agronomy Location Manager Required: No Information Interpreted: non-clinical & clinical Accompanied by: Self / Same As Patient Allergies mushroom Allergy (Unknown, Verified 08/15/25 11:22) Unknown SHELLFISH Allergy (Severe, Uncoded 08/15/25 11:22) THROAT CLOSES, ITCHY HPI Comments Details: Presenting complaining of continuous vaginal bleeding since initiating control pills Last H&H in = 8.3/28.6 Last pelvic ultrasound in 07/17 showed multiple myomas Last EMB in 11/15 showed proliferative endometrium with no evidence of endometrial hyperplasia and/or malignancy Last co testing was in 06/13, negative REPLACED BY [facility] Medical History Obesity (BMI 30-39.9) Dysmenorrhea History of anemia Menorrhagia Uterine fibroid Asthma Surgical History History of bilateral tubal ligation Family History Maternal Grandmother Ovarian cancer Social History Household Members: Significant Other and Children Housing: House Alcohol intake: never Patient Tobacco Use Status: Never used Tobacco 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al status: employed 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: [employer]AIL [employer]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 Sexual orientation: Straight/Heterosexual Gender identity: Female Female Reproductive History Menstrual Age of Menarche: 8 Review of Systems Const All systems reviewed & are unremarkable except as noted in HPI and below Physical Exam Vital Signs: BMI result Body Mass Index 36.0 General: Yes no CVA tenderness External Female Exam: normal external appearance and normal appearance of the urethra Speculum Exam - Vagina: normal appearance of the vagina, normal palpation, no lesions and no masses Speculum Exam - Cervix: normal appearance of the cervix, normal palpation, no lesions, no masses and nontender Bimanual exam- vagina & uterus: normal bimanual exam, normal palpation, uterine size normal, normal palpation, uterine shape normal, No Cervical tenderness present and non-tender Bimanual Exam- Adnexa, other: normal adnexae Back/Spine/Pelvis Back: no CVA tenderness Office Procedures Endometrial Biopsy Details: The patient was counseled regarding the indication and benefits of endometrial sampling to rule out endometrial pathology including not limited to endometrial hyperplasia or endometrial cancer and others; The alternatives (Either do nothing vs. hysteroscopy D&C) & the risks were discussed with the patient including but not limited: pain, uterine perforation, bleeding, infection, possible injury to bladder, bowel, ureter, possible need for blood transfusion with all its possible risks. The patient verbalized understanding all questions answered and signed consent. Urine test done in the office was negative The patient was placed into the dorsal lithotomy position; a speculum was inserted in the vagina. Using aseptic technique for the procedure, the cervix was cleansed with Betadine. The anterior lip of the cervix was grasped with a single tooth tenaculum. The uterus was sounded to 7 cm with a 4 mm Pipelle was used. Tissues samples were obtained and placed in formalin, in a patient labeled container and sent to the pathology department. At the end of the procedure, there was minimal bleeding noted The patient tolerated the procedure well and was discharged in good condition with the following instructions: Nothing in the vagina until the bleeding stops. No sex until the bleeding stops, to call if any of the following occurs: fever (>100.4), flu-like symptoms, abdominal pain, heavy bleeding, four smelling vaginal discharge. The patient was instructed to schedule a Follow up appointment in 2 weeks to discuss pathology results of the biopsy and treatment options. This note was generated with a voice recognition program. Some errors may have been overlooked during the review of this note. Sometimes these errors may affect the content or meaning of a given sentence. [id number] Biopsy Results AMB Test Urine AMB Test Urine Negative Last Edit by Aggie Stern CMA on 11:23 Results Reviewed Results Reviewed: Laboratory Last Values [facility] Clinic Negative 08/15/25 11:22 Assessment & Plan Assessment & Plan (1) Abnormal uterine bleeding: Comment: Anemia and uterine myoma Code(s): N93.9 - Abnormal uterine and vaginal bleeding, unspecified Category: Medical Plan: UPT done in the office was negative. GC/CT taken. Repeat CBC ordered. Iron sulfate 325 mg p.o. t.i.d. Recommended repeat EMB, see procedure note Instructions given the patient to schedule a follow-up appointment within 1-2 weeks Orders: Orders AMB HCG Urine Test Today Z32.02 - Encounter for test, result negative AMB Endometrial Biopsy Today N93.9 - Abnormal uterine and vaginal bleeding, unspecified Coding Level of Care Code Est Pt Level 3 (61593) Procedure Only Diagnoses Abnormal uterine bleeding N93.9 CPT Codes Endometrial Biopsy - CPT: 57619-Gilciitaydq Biopsy ([id number])
[2025-08-15 11:16] VITALS: BMI 36.0
--- OUTSIDE RECORDS SUMMARY | 2025-08-15 14:02 | XMS_ITS | Encounter Summary ---
Author Organization [employer] [facility] Address [address] [place] [address] 7 [place] [address] Care Team Providers Care Contracts Director Name Role Phone Bessy Hawk MD Primary Care Provider + Encounter Details Date Type Department Care Team (Late st Contact Info) Description 08/26/2023 Abstract [facility] [address] [place] [address] [phone] Richelle Bhardwaj Social History Tobacco Use Types [...] Care Team (Late st Contact Info) Description 10/05/2025 11:45 AM EST Office Visit [facility] [address] [place] [address] [phone] Bessy Hawk MD [address] [place] [phone] documented as of this encounter Procedures Procedure Name Priority Date/Time Associated Diagnosis Comments PAP/HPV Routine 06/09/2022 documented in this encounter Results * Pap Smear (06/09/2022) Pap Negative for intraephithelial lesion or malignancy Negative for intraephithelial lesion or malignancy, Other HPV Undetected us Historical Provider HEALTH MAINTENANCE Final Result documented in this encounter Visit Diagnoses Not on filedocumented in this encounter Care Teams Contracts Director Relationship Specialty Start Date End Date Bessy Hawk MD [address] [place] [address] PCP - General Family Medicine 10/20/16 documented as of this encounter
--- OUTSIDE RECORDS SUMMARY | 2025-08-15 14:02 | XMS_ITS | Encounter Summary ---
Author Organization [employer] [facility] Address [address] [place] [address] Care Team Providers Care Software Packaging Engineer Name Role Phone Bessy Hawk MD Primary Care Provider + Reason for Visit * Reason Comments Med Refill Encounter Details Date Type Department Care Team (Late st Contact Info) Description 03/18/2024 Refill [facility] [address] [place] [address] [phone] Bessy Hawk MD [address] [place] [phone] Social History Tobacco Use Types Packs/Day Years [...] Description 10/05/2025 11:45 AM EST Office Visit [facility] [address] [place] [phone] Bessy Hawk MD [address] [place] [address] [phone] documented as of this encounter Visit Diagnoses Not on filedocumented in this encounter Care Teams Software Packaging Engineer Relationship Specialty Start Date End Date Bessy Hawk MD [address] [place] [phone] PCP - General Family Medicine 10/20/16 documented as of this encounter
--- OUTSIDE RECORDS SUMMARY | 2025-08-15 14:02 | XMS_ITS | Encounter Summary ---
Author Organization [employer] [facility] Address [address] [place] [address] 7 [place] [address] Care Team Providers Care Mental Health Assistant Name Role Phone Bessy Hawk MD Primary Care Provider + Encounter Details Date Type Department Care Team (Late st Contact Info) Description 03/19/2023 Orders Only [facility] [address] [place] [phone] Loly Busby LPN Social History Tobacco Use [...] Description 10/05/2025 11:45 AM EST Office Visit [facility] [address] [place] [phone] Bessy Hawk MD [address] [place] [phone] documented as of this encounter Visit Diagnoses Not on filedocumented in this encounter Care Teams Mental Health Assistant Relationship Specialty Start Date End Date Bessy Hawk MD [address] [place] [phone] PCP - General Family Medicine 10/20/16 documented as of this encounter
--- OUTSIDE RECORDS SUMMARY | 2025-08-15 14:02 | XMS_ITS | Clinical Summary ---
Author Organization [facility] Address [address] [place] [address] Care Team Providers Care Meter Shop Supervisor Name Role Phone Unavailable Primary Care Provider [...] Cervical Cancer Screening: P ap Smear 2009 Depression Screening 11/23/2024 COVID-19 Vaccine (1 - 2023-2 5 season) 2025 Influenza Vaccine (#1) 2025 RSV Immunization Adult Patie nts (1 - 1-dose 75+ series) 2063 HIB Vaccines Aged Out No longer eligi [...]
--- OUTSIDE RECORDS SUMMARY | 2025-08-15 14:02 | XMS_ITS | Clinical Summary ---
Author Organization [facility] Address [address] [place] [address] 7t [place] [address] Care Team Providers Care Core Blower Name Role Phone Bessy Hawk MD Primary Care Provider + Allergies Active Allergy Reactions Criticality Noted Date Comments Mushroom Extract Complex (Obsolete) 04/24/2023 Shellfish-Derived Products Unknown 0 Medications Apri 0.15-30 MG-MCG tablet Take 1 tablet by mouth in the morning. 023 Active valACYclovir (Valtrex) 500 MG tablet TAKE 1 TABLET BY MOUTH TWICE A DAY FOR 3 DAYS AT ONSET OF SYMPTOMS. MAY REPEAT NEEDED 022 Active ferrous sulfate 325 (65 Fe) MG tablet TAKE 1 TABLET BY MOUTH 2 TIMES DAILY. (NOT COVERED) 180 tablet 1 023 Active albuterol (Ventolin HFA) 108 (90 Base) MCG/ACT inhalerIndicati ons:Moderate persistent asthma without complication INHALE 2 PUFFS INTO THE LUNGS EVERY 4 TO 6 HOURS NEEDED. 18 g 3 024 Active EPINEPHrine (Epipen) 0.3 MG/0.3ML injection syringe INJECT 0.3 ML INTRAMUSCULARLY ONCE NEEDED FOR ANAPHYLAXIS 2 each 1 025 Active naproxen (Naprosyn) 500 MG tabletIndicatio ns:Acute midline low back pain without sciatica,Fall, initial encounter Take 1 tablet (500 mg) by mouth with breakfast and with evening meal. 20 tablet 025 Active Mometasone Furoate (Asmanex HFA) 100 MCG/ACT aerosol Inhale 2 Act (200 mcg) Once per day. Rinse mouth after use 39 g 3 025 2024 Active Mometasone Furoate (Asmanex HFA) 100 MCG/ACT aerosol Inhale 2 Inhalation. Once per day. Rinse mouth after use 39 g 3 024 2024 Discontinued(R eorder (will not trigger notification to Pharmacy)) fluticasone (Flonase) 50 MCG/ACT nasal spray Administer 1 spray into each nostril Once per day. 16 g 2 024 2024 Discontinued(T herapy completed) cetirizine (ZyrTEC) 10 MG tablet TAKE 1 TABLET BY MOUTH ONCE DAILY 90 tablet 2024 Discontinued(T herapy completed) cyclobenzaprine (Flexeril) 10 MG tabletIndicatio ns:Acute midline low back pain without sciatica,Fall, initial encounter One tab po at bedtime prn pain of muscles, do not drive with medicaion 30 tablet 025 2024 Discontinued(T herapy completed) Active Problems Problem Noted Date Diagnosed Date Nevus 07/28/2025 Assessment & Plan (07/28/2025 3:28 PM EDT): On left scapula and right forearm, will refer to dermatology Acute midline low back pain without sciatica [...] up to date next one due 06/2024 Menorrhagia 04/24/2023 Pityriasis versicolor 04/24/2023 Acne 08/02/2013 Herpes simplex type 2 infection 08/02/2013 Assessment & Plan (07/28/2025 3:27 PM EDT): Resolved Mild intermittent asthma 04/04/2013 Assessment & Plan (07/28/2025 3:27 PM EDT): Controlled, continue Asmanex 2 puffs daily + albuterol as needed Assessment & Plan (04/01/2024 10:04 AM EDT): Restart asmanex 2 puffs daily and fu w/ me in 6 m Use albuterol PRN asthma exacerbation PCV20 today Allergic rhinitis 06/23/2012 Assessment & Plan (04/01/2024 10:03 AM EDT): Use flonase + zyrtec x 1 wk then PRN Dysmenorrhea 06/23/2012 Iron deficiency anemia 06/23/2012 Assessment & Plan (07/28/2025 3:27 PM EDT): Restart iron supplementation and follow-up with [facility] due to DU B Resolved Problems Problem Noted Date Diagnosed Date Resolved Date Abdominal bloating 04/24/2023 Overweight 08/02/2013 07/28/2025 Encounters Date Type Department Care Team Description 07/26/[address] [facility] [address] [place] [phone] Bessy Hawk MD 07/21/[address] [phone] Bessy Hawk MD Referral 07/21/[address] [address] Bessy Hawk MD Appointment Request 07/10/2025 3:45 PM EDT Office Visit [address] [phone] Bessy Hawk MD Herpes simplex type 2 infection (Primary Dx); Mild intermittent asthma, unspecified whether complicated; Iron deficiency anemia due to chronic blood loss; Nevus; Class 2 obesity due to excess calories without serious comorbidity with body mass index (BMI) of 36.0 to 36.9 in adult; Dietary counseling; Exercise counseling 07/10/2025 Travel 07/07/[address] [address] Bessy Hawk MD Chart Prep 07/07/2025 Orders Only [facility] External Provider, [facility] 07/03/2025 Travel 06/30/2025 Patient Outreach [address] [phone] Bessy Hawk MD Pre-visit Planning ((Unable to reach for PVP screening, LVM) to be completed in office ) 06/30/2025 Patient Outreach [address] [address] Bessy Hawk MD from Last 3 Months Immunizations Immunization Administration [...] is your housing situation today? I have anacharli aguilar 07/10/[address] you [...] 07/10/2025 3:55 PM EDT Plan of Treatment Upcoming Encounters Date Type Department Care Team (Late st Contact Info) Description 10/05/2025 11:45 AM EST Office Visit [facility] [address] [place] [address] Bessy Hawk MD [address] [place] [address] Health Maintenance Due Date Last Done Comments Family Planning (PISQ) 2003 COVID-19 Vaccine ( season) 2025 03/03/2022, 08/13/2021, 07/19/2021 Influenza Vaccine (#1) 2025 [...] PM EDT Narrative 07/07/2025 1:22 PM EDT [facility] Adult Primary Care [address] [place] [address] [place] [address] Ultrasound Report Signed Patient: Chely Wu MR#: [id number] : 1990 Acct:[id number] Age/Sex: 35 / F ADM Date: 07/07/25 Loc: HO.HMGCX Attending Dr: Bautista Bullock MD Ordering Physician: Bautista Bullock MD Date of Service: 07/07/25 Procedure(s): US pelvic and transvaginal Accession Number(s): [id number] cc: Bessy Hawk MD; Bautista Bullock MD [...] Stewart Bustos MD 07/07/2025 01:19 PM EDT RP Dictated By: Stewart Bustos MD Signed By: <Electronically signed by Stewart Bustos MD in OV> 07/07/25 1319 DD/ 1253 TD/TT: 07/07/25 1307 Vocational Services Specialist: Procedure Note Donotuseinterpreter, Image - 07/07/2025 [facility] Adult Primary Care [facility] [place] [address] Ultrasound Report Signed Patient: Parveen Wu#: [id number] : 1990Acct:[id number] Age/Sex: 35 / FADM Date: 07/07/25 Loc: .HMGX Attending Dr: Bautista Bullock MD Ordering Physician: Bautista Bullock MD Date of Service: 07/07/25 Procedure(s): US pelvic and transvaginal Accession Number(s): [id number] cc: Bessy Hawk MD; Bautista Bullock MD [...] 07/07/25 1319 DD/ 1253 TD/TT: 07/07/25 1307 Vocational Services Specialist: [facility] External Provider IMG US PROCEDURES Final Result * Pathologist Review - CBC (06/22/2025 9:31 AM EDT) Pathologist Review - CBC SEE NOTE [facility] Comment:Variably hypochromic microcytic anemia; elliptocytes arepresent. Please correlate with iron studies.- Lefty Lozoya M.D. Pathology 06/22/2025 9:31 AM EDT 06/22/2025 9:31 AM EDT us Generic External Data Provider LAB BLOOD ORDERAB LES Final Result Performing Organization Address City/[facility]/ZIP Co de Phone Number [facility] [address] [place] [address] [phone] * (ABNORMAL) CBC (06/22/2025 9:31 AM EDT) [facility] White Blood Count 7.5 4.8 - 10.8 X10*3/uL [facility] Red Blood Count 4.52 4.20 - 5.50 X10*6/uL [facility] Hemoglobin 8.3(L) 12.0 - 16.0 g/dl [facility] Hematocrit 28.6(L) 37.0 - 47.0 % [facility] Mean Corpuscular Volume 63.3(L) 80.0 - 98.0 fL [facility] Mean Corpuscular Hemoglobin 18.4(L) 27.0 - 33.0 pg [facility] Mean Corpuscular HGB Conc 29.0(L) 31.0 - 35.0 g/dl [facility] Red Cell Distribution Width 18.7(H) 11.0 - 16.0 % [facility] Platelet Count 307 160 - 400 X10*3/uL [facility] Mean Platelet Volume 9.4 9.4 - 12.3 fL [facility] NRBC Pct Auto 0.0 0.0 - 0.2 /100WBC [facility] NRBC Abs Auto 0.000 0.0 - 0.012 X10*3/uL [facility] 06/22/2025 9:31 AM EDT 06/22/2025 9:31 AM EDT us Generic External Data Provider LAB BLOOD ORDERAB LES Final Result Performing Organization Address City/[facility]/ZIP Co de Phone Number [facility] [address] [place] [address] [phone] * (ABNORMAL) Lipid Panel, Standard (04/24/2023 11:05 AM EDT) Cholesterol, Total 179 <200 mg/dL [facility] HDL Cholesterol 54 > OR = 50 mg/dL [facility] Triglycerides 100 <150 mg/dL [facility] LDL Cholesterol 105(H) mg/dL (calc) [facility] Comment: Reference range: <100 Desirable range <100 mg/dL for primary prevention; <70 mg/dL for patients with CHD or diabetic patients with > or = 2 CHD risk factors. LDL-C is now calculated using the Jose calculation, which is a validated novel method providing better accuracy than the Friedewald equation in the estimation of LDL-C. Heron SS et al. IFEOMA. 2013;310(19): 3061-1734 (http://education.Terra[employer] Power/faq/BDR161) Chol/HDLC Ratio 3.3 <5.0 (calc) [facility] Non-HDL Cholesterol 125 <130 mg/dL (calc) [facility] Comment: For patients with diabetes plus 1 major ASCVD risk factor, treating to a non-HDL-C goal of <100 mg/dL (LDL-C of <70 mg/dL) is considered a therapeutic option. Blood Venous blood specimen / Unknown 04/24/2023 11:05 AM EDT 04/24/2023 11:05 AM EDT Narrative [facility] - 04/27/2023 11:14 AM EDT FASTING:NO FASTING: NO Amaris Soriano DO LAB BLOOD ORDERABLES Final R esult [facility] [address], [place] [address] [facility] [address] [place] [address] * Hm Pap Smear (06/09/2022) Pap Negative for intraephithelial lesion or malignancy Negative for intraephithelial lesion or malignancy, Other HPV Undetected Historical Provider HEALTH MAINTENANCE Final Result * HEPATITIS C AB W/REFL TO HCV RNA, QN, PCR (03/03/2022 10:34 AM EDT) HEPATITIS C ANTIBODY NON-REACT MARI NON-REACT MARI [facility] INDEX 0.02 <1.00 [facility] Comment: HCV antibody was non-reactive. There is no laboratory evidence of HCV infection. In most cases, no further action is required. However, if recent HCV exposure is suspected, a test for HCV RNA (test code 58747) is suggested. For additional information please refer to http://Prezi.Equities.com/faq/LSE41g1 (This link is being provided for informational/ educational purposes only.) 03/03/2022 10:3 4 AM EDT Liliane Blake ASSEMBLY LINE DRIVER HISTORICAL/NON ORDERABLE LABS Final Result [facility] [address] * HIV 1/2 ANTIGEN/ANTIBODY,FOURTH GENERATION W/RFL (03/03/2022 10:34 AM EDT) HIV-1/2 ANTIGEN AND ANTIBODIES, 4TH GENERATION W/ REFLEX NON-REACT MARI NON-REACT MARI [facility] Comment: HIV-1 antigen and HIV-1/HIV-2 [...] purpose. For additional information please refer to http://Prezi.Equities.com/faq/TDU949 (This link is being provided for informational/ educational purposes only.) The performance of this assay has not been clinically validated in patients less than 2 years old. 03/03/2022 10:3 4 AM EDT us Liliane Blake ASSEMBLY LINE DRIVER LAB BLOOD ORDERABLES Final Res ult [facility] [address] from Last 3 Months or Most Recently Relevant to Health Maintenance Insurance [facility] C3 BCBS PPO Care Teams Core Blower Relationship Specialty Start Date End Date Bessy Hawk MD [address] [place] [phone] PCP - General Family Medicine 10/20/16
--- OUTSIDE RECORDS SUMMARY | 2025-08-15 14:02 | XMS_ITS | Encounter Summary ---
Author Organization [employer] Address [address] [facility] 7t [place] [address] Care Team Providers Care Scutcher Tender Name Role Phone Bessy Hawk MD Primary Care Provider + Reason for Visit * Reason Comments Med Refill Encounter Details Date Type Department Care Team (Late st Contact Info) Description 04/24/2025 Refill [facility] [address] [place], [place] [phone] Nessa Kearns MD [address] [place], [place] [phone] Acute midline low back pain without sciatica; [...] Description 10/05/2025 11:45 AM EST Office Visit [facility] [address] [place] [phone] Bessy Hawk MD [address] [place] [phone] documented as of this encounter Visit Diagnoses Diagnosis Acute midline low back pain without sciatica Fall, initial encounter documented in this encounter Care Teams Scutcher Tender Relationship Specialty Start Date End Date Bessy Hawk MD [address] [place] [phone] PCP - General Family Medicine 10/20/16 documented as of this encounter
--- OUTSIDE RECORDS SUMMARY | 2025-08-15 14:02 | XMS_ITS | Encounter Summary ---
Author Organization [employer] Address [address] [place] [address] 7 [place] [address] Care Team Providers Care Block Trader Name Role Phone Bessy Hawk MD Primary Care Provider + Reason for Visit * Reason Onset Date Comments Appointment Request 07/21/2025 Encounter Details Date Type Department Care Team ([facility] st Contact Info) Description 07/21/[address] [facility] [address] [place], [place] [phone] Bessy Hawk MD [address] [place], [place] [phone] Appointment Request Social History Tobacco Use Types Packs/Day Years [...] encounter Miscellaneous Notes * Telephone Encounter - Erich Pelayo - 07/21/2025 9:09 AM EDT Tc from pt requesting to r/s the office visit that was canceled on 07/17. Contact pt at [phone] documented in this encounter Plan of Treatment Upcoming Encounters Date Type Department Care Team (Late st Contact Info) Description 10/05/2025 11:45 AM EST Office Visit [facility] [address] [place] [phone] Bessy Hawk MD [address] [place] [address] documented as of this encounter Visit Diagnoses Not on filedocumented in this encounter Additional Health Concerns Assessment Noted Time PHQ-9 Depression Total Score: 1 07/10/20 25 3:57 PM EDT documented as of this encounter Care Teams Block Trader Relationship Specialty Start Date End Date Bessy Hawk MD [address] [place] [phone] PCP - General Family Medicine 10/20/16 documented as of this encounter
== END 2025-08-15 11:47 | disposition home or self-care (01) ==
LOC: HO.HWS 11:12
PROVIDERS: PCP Internal Medicine; Visit Provider Obstetrics & Gynecology
DX: N93.9 Abnormal uterine and vaginal bleeding, unspecified (principal); Z32.02 Encounter for pregnancy test, result negative
CPT/HCPCS: 58100; 99213

== ENCOUNTER 2025-08-18 08:44 | Outpatient (REF) | payer OTHER, SELFPAY ==
--- OUTSIDE RECORDS SUMMARY | 2025-08-18 09:16 | XMS_ITS | Encounter Summary ---
Author Organization [employer] Address [address] [place] [address] 7 [place] [address] Care Team Providers Care Mammal Keeper Name Role Phone Bessy Hawk MD Primary Care Provider + Reason for Visit * Reason Onset Date Comments Appointment Request 07/21/2025 Encounter Details Date Type Department Care Team ([facility] st Contact Info) Description 07/21/2025 Telephone [facility] [address], [place] [phone] Bessy Hawk MD [address], [place] [phone] Appointment Request Social History Tobacco Use Types [...] was canceled on 07/17. Contact pt at [phone] documented in this encounter Plan of Treatment Upcoming Encounters Date Type Department Care Team (Late st Contact Info) Description 08/18/2025 9:20 AM EDT Office Visit [facility] [address] [place] [phone] 10/05/2025 11:45 AM EST Office Visit [facility] [address] [place] [address] [phone] Bessy Hawk MD [address] [place] [phone] documented as of this encounter Visit Diagnoses Not on filedocumented in this encounter Additional Health Concerns Assessment Noted Time PHQ-9 Depression Total Score: 1 07/10/20 3:57 PM EDT documented as of this encounter Care Teams Mammal Keeper Relationship Specialty Start Date End Date Bessy Hawk MD [address] [place] [phone] PCP - General Family Medicine 10/20/16 documented as of this encounter
--- OUTSIDE RECORDS SUMMARY | 2025-08-18 09:16 | XMS_ITS | Encounter Summary ---
Author Organization [employer] [facility] Address [address] [place] [address] 7 [place] [address] Care Team Providers Care Kraft Mill Operator Name Role Phone Bessy Hawk MD Primary Care Provider + Encounter Details Date Type Department Care Team (Late st Contact Info) Description 03/19/2023 Orders Only [facility] [address] [place] [phone] Loly Busby LPN Social History Tobacco Use [...] Description 08/18/2025 9:20 AM EDT Office Visit [facility] [address] [place] [phone] 10/05/2025 11:45 AM EST Office Visit [facility] [address] [place] [phone] Bessy Hawk MD [address] [place] [phone] documented as of this encounter Visit Diagnoses Not on filedocumented in this encounter Care Teams Kraft Mill Operator Relationship Specialty Start Date End Date Bessy Hawk MD [address] [place] [phone] PCP - General Family Medicine 10/20/16 documented as of this encounter
--- OUTSIDE RECORDS SUMMARY | 2025-08-18 09:16 | XMS_ITS | Encounter Summary ---
Author Organization [employer] [facility] Address [address] [place] [address] 7 [place] [address] Care Team Providers Care Block Sealer Name Role Phone Bessy Hawk MD Primary Care Provider + Encounter Details Date Type Department Care Team (Late st Contact Info) Description 08/26/2023 Abstract [facility] [address] [place] [phone] Richelle Bhardwaj Social History Tobacco Use Types [...] Description 08/18/2025 9:20 AM EDT Office Visit [facility] [address] [place] [address] [phone] 10/05/2025 11:45 AM EST Office Visit [facility] [address] [place] [address] [phone] Bessy Hawk MD [address] [place] [address] [phone] documented as of this encounter Procedures Procedure Name Priority Date/Time Associated Diagnosis Comments PAP/HPV Routine 06/09/2022 documented in this encounter Results * Hm Pap Smear (06/09/2022) Pap Negative for intraephithelial lesion or malignancy Negative for intraephithelial lesion or malignancy, Other HPV Undetected Historical Provider HEALTH MAINTENANCE Final Result documented in this encounter Visit Diagnoses Not on filedocumented in this encounter Care Teams Block Sealer Relationship Specialty Start Date End Date Bessy Hawk MD [address] [place] [phone] PCP - General Family Medicine 10/20/16 documented as of this encounter
--- OUTSIDE RECORDS SUMMARY | 2025-08-18 09:16 | XMS_ITS | Encounter Summary ---
Author Organization [employer] [facility] Address [address] [place] [address] [place] [address] Care Team Providers Care Driver Examiner Name Role Phone Bessy Hawk MD Primary Care Provider + Reason for Visit * Reason Comments Med Refill Encounter Details Date Type Department Care Team (Late st Contact Info) Description 03/18/2024 Refill [facility] [address] [place] [address] [phone] Bessy Hawk MD [address] [place] [phone] Social History Tobacco Use Types Packs/Day Years [...] Description 08/18/2025 9:20 AM EDT Office Visit [facility] [address] [place] [address] [phone] 10/05/2025 11:45 AM EST Office Visit [facility] [address] [place] [phone] Bessy Hawk MD [address] [place] [address] [phone] documented as of this encounter Visit Diagnoses Not on filedocumented in this encounter Care Teams Driver Examiner Relationship Specialty Start Date End Date Bessy Hawk MD [address] [place] [phone] PCP - General Family Medicine 10/20/16 documented as of this encounter
--- OUTSIDE RECORDS SUMMARY | 2025-08-18 09:16 | XMS_ITS | Encounter Summary ---
Author Organization [employer] Address [address] [place] [address] 7 [place] [address] Care Team Providers Care Supply Chain Coordinator Name Role Phone Bessy Hawk MD Primary Care Provider + Encounter Details Date Type Department Care Team (Late st Contact Info) Description 08/15/2025 Orders Only GENERIC EXTERNAL DATA DEPARTMENT Provider, Generic External Data Social History Tobacco Use Types Packs/Day Years [...] Description 08/18/2025 9:20 AM EDT Office Visit [facility] [address] [place] [address] [phone] 10/05/2025 11:45 AM EST Office Visit [facility] [address] [place] [address] [phone] Bessy Hawk MD [address] [place], [place] [phone] documented as of this encounter Procedures Procedure Name Priority Date/Time Associated Diagnosis Comments CBC Routine 08/15/2025 3:23 PM EDT HEMATOXYLIN AND EOSIN STAIN Routine 08/15/2025 11:55 AM EDT CHLAMYDIA/N. GONORRHOEAE RNA, TMA, UROGENITAL Routine 08/15/2025 11:12 AM EDT documented in this encounter Results * (ABNORMAL) CBC (08/15/2025 3:23 PM EDT) White Blood Count 8.0 4.8 - 10.8 X10*3/uL [facility] Red Blood Count 4.55 4.20 - 5.50 X10*6/uL [facility] Hemoglobin 10.0(L) 12.0 - 16.0 g/dl [facility] Hematocrit 33.4(L) 37.0 - 47.0 % [facility] Mean Corpuscular Volume 73.4(L) 80.0 - 98.0 fL [facility] Mean Corpuscular Hemoglobin 22.0(L) 27.0 - 33.0 pg [facility] Mean Corpuscular HGB Conc 29.9(L) 31.0 - 35.0 g/dl [facility] Red Cell Distribution Width 23.9(H) 11.0 - 16.0 % [facility] Platelet Count 202 160 - 400 X10*3/uL [facility] Mean Platelet Volume 10.7 9.4 - 12.3 fL [facility] NRBC Pct Auto 0.0 0.0 - 0.2 /100WBC [facility] NRBC Abs Auto 0.000 0.0 - 0.012 X10*3/uL [facility] 08/15/2025 3:23 PM EDT 08/15/2025 3:23 PM EDT us Generic External Data Provider LAB BLOOD ORDERAB LES Final Result Performing Organization Address [facility]/State/ZIP Co de Phone Number [facility] [address] [place] [phone] * Hematoxylin and Eosin Stain (08/15/2025 11:55 AM EDT) 08/15/2025 11:5 5 AM EDT 08/16/2025 7:50 AM EDT Narrative [facility] - 08/17/2025 3:36 PM EDT ----- ------- Name: Chely Wu Age/Sex: 35/F : 1990 Unit#: [id number] Attend Dr: Bautista Bullock MD Re08/15/25 Status: DEP [facility] Disch: ----- ------- SPEC : [id number] RECD: 08/16/25 STATUS: NAZANIN BRENNAN NUM: [id number] KATHLEEN: 08/15/[address] [facility] [address]: Bautista Bullock MD ENTERED: 08/16/25 SP TYPE: Surgical OTHR DR: Bessy Hawk MD ORDERED: HE Stain/2, Gross Micro L4 Diagnosis Endometrium, biopsy: Inactive endometrium with focal stromal and epithelial breakdown and focal pseudodecidual change, consistent with exogenous progestin; no atypia or hyperplasia identified. Clinical History Pre-Op Dx: AUB Post-Op Dx: Pending Microscopic Description Microscopic sections reviewed. Material Received EMB Gross Description Received in formalin is a 1.5 x 1.0 x 0.3 cm aggregate of fierro-red soft tissue admixed with blood clot, totally submitted in A1. (RJD) IHC S/NG Disclaimer NOTE: Unless otherwise stated, all tissue is formalin-fixed and paraffin-embedded. Some or all of the immunohistochemical tests reported herein may have been developed and their performance characteristics determined by [facility]. They have not been cleared or approved by the U.S. Food and Drug Administration (FDA). However, the FDA has determined that such clearance or approval is not necessary. This laboratory is certified under the Clinical Laboratory Improvement Amendments of 1988 (CLIA) as qualified to perform high complexity clinical laboratory testing. Copies To: Bessy Hawk MD [address] [address] CONTINUED ON NEXT PAGE ----- ------- Name: Chely Wu Age/Sex: 35/F : 1990 Unit#: [id number] Attend Dr: Bautista Bullock MD Re08/15/25 Status: DEP [facility]F [facility] Disch: ----- ------- SPEC : [id number] RECD: 08/16/25286 STATUS: NAZANIN MIKA NUM: [id number] KATHLEEN: 08/15/25-[address] [facility] [address]: Bautista Bullock MD ENTERED: 08/16/25 SP TYPE: Surgical OTHR DR: Bessy Hawk MD ORDERED: HORTENSIA Berrios/2, Gross Micro L4 Copies To: (Continued) Bautista Bullock MD [facility] [address] [place] [address] [place] [phone] ----- ------- Signed (signature on file) Lefty Lozoya MD 08/17/25 1536 ----- ------- END OF REPORT us Generic External Data Provider LAB BLOOD ORDERAB LES Final Result [facility] [address] [place] [address] [phone] * Chlamydia/N. Gonorrhoeae RNA, TMA, Urogenitial (08/15/2025 11:12 AM EDT) CT PCR NOT DETECTED Not Detect. [facility] Comment:A not detected test result does not exclude the possibilityof infection because test results can be affected byimproper specimen collection, concurrent antibiotic therapy,or the number of organisms in the specimen which may bebelow the sensitivity of the test. As with many diagnostictests, results from the Xpert CT/NG assay should beinterpreted in conjunction with other laboratory andclinical data available to the clinician.Xpert CT/NG performance has not been evaluated in patientsless than 14 years of age. The assay should not be used forthe evaluationof suspected sexual abuse or for other medico-legalindications. Additional testing is recommended in anycircumstance when false positive or false negative resultscould lead to adverse medical, social or psychologicalconsequences. NG PCR NOT DETECTED Not Detect. [facility] Comment:A not detected test result does not exclude the possibilityof infection because test results can be affected byimproper specimen collection, concurrent antibiotic therapy,or the number of organisms in the specimen which may bebelow the sensitivity of the test. As with many diagnostictests, results from the Xpert CT/NG assay should beinterpreted in conjunction with other laboratory andclinical data available to the clinician.Xpert CT/NG performance has not been evaluated in patientsless than 14 years of age. The assay should not be used forthe evaluationof suspected sexual abuse or for other medico-legalindications. Additional testing is recommended in anycircumstance when false positive or false negative resultscould lead to adverse medical, social or psychologicalconsequences. 08/15/2025 11:1 2 AM EDT 08/15/2025 7:28 PM EDT us Generic External Data Provider LAB MICROBIOLOGY - GENERAL ORDERABLES Final Result [facility] [address] [place] [address] [phone] documented in this encounter Visit Diagnoses Not on filedocumented in this encounter Additional Health Concerns Assessment Noted Time PHQ-9 Depression Total Score: 1 07/10/20 25 3:57 PM EDT documented as of this encounter Care Teams Supply Chain Coordinator Relationship Specialty Start Date End Date Bessy Hawk MD [address] [place] [address] PCP - General Family Medicine 10/20/16 documented as of this encounter
--- OUTSIDE RECORDS SUMMARY | 2025-08-18 09:16 | XMS_ITS | Clinical Summary ---
Author Organization [employer] Address [address] [place] [address] 7t [place] [address] Care Team Providers Care Sonographer Name Role Phone Bessy Hawk MD Primary [...] EDT): Restart iron supplementation and follow-up with ERP DEVELOPER due to DU B Resolved Problems Problem Noted Date Diagnosed Date Resolved Date Abdominal bloating 04/24/2023 Overweight 08/02/2013 07/28/2025 Encounters Date Type Department Care Team Description 08/18/2025 Travel 08/15/2025 Orders Only GENERIC EXTERNAL DATA DEPARTMENT Provider, Generic External Data 07/26/[address] [address] Bessy Hawk MD 07/21/[address] [address] Bessy Hawk MD Referral 07/21/[address] [address] Bessy Hawk MD Appointment Request 07/10/2025 3:45 PM EDT Office Visit [address] [address] Bessy Hawk MD Herpes simplex type 2 infection (Primary Dx); Mild intermittent asthma, unspecified whether complicated; Iron deficiency anemia due to chronic blood loss; Nevus; Class 2 obesity due to excess calories without serious comorbidity with body mass index (BMI) of 36.0 to 36.9 in adult; Dietary counseling; Exercise counseling 07/10/2025 Travel 07/07/[address] [address] Bessy Hawk MD Chart Prep 07/07/2025 Orders Only [facility] External Provider, [facility] 07/03/2025 Travel 06/30/2025 Patient Outreach [address] [address] Bessy Hawk MD Pre-visit Planning ((Unable to reach for PVP screening, LVM) to be completed in office ) 06/30/2025 Patient Outreach [address] [address] Bessy Hawk MD from Last 3 Months [...] Description 08/18/2025 9:20 AM EDT Office Visit [facility] [address] [place] [phone] 10/05/2025 11:45 AM EST Office Visit [facility] [address] [place] [phone] Bessy Hawk MD [address] [place] [phone] Health Maintenance Due Date Last Done Comments [...] 09/02/2029 09/02/2019, 04/10/2011, 05/09/1992, Additional history exists Lipid Panel 08/15/2030 08/15/2025, 12/2022, 11/12/2022 Zoster Vaccines (1 of 2) 2038 RSV Patients and Patients Aged 60 years or older (1 - 1-dose 75+ series) 2063 IPV Vaccines Completed 05/09/1992, 04/24, 1988, Additional history exists HPV Vaccines Completed 02/19/2011, 09/24, 07/31/2010 Pneumococcal Vaccine: Pediatrics (0 to 5 Years) and At-Risk Patients (6 to 49) Years Completed 04/01/2024, 11/20/2014 Hepatitis B Vaccines Completed 04/07/2024, 02/14/2002, 09/15/2001, Additional history exists HIV Screening Completed 08/15/2025, 03/03/2022 Hepatitis C Screening Completed 08/15/2025, 022 HIB Vaccines Aged Out No longer eligi [...] Comments CBC Routine 08/15/2025 3:23 PM EDT LIPID PANEL WITH REFLEX TO DIRECT LDL Routine 08/15/2025 3:23 PM EDT Class 2 obesity due to excess calories without serious comorbidity with body mass index (BMI) of 36.0 to 36.9 in adult SYPHILIS SCREEN Routine 08/15/2025 3:23 PM EDT Herpes simplex type 2 infection HEPATITIS PANEL, GENERAL Routine 08/15/2025 3:23 PM EDT Herpes simplex type 2 infection HIV 1/2 ANTIGEN/ANTIBODY, FOURTH GENERATION W/RFL Routine 08/15/2025 3:23 PM EDT Herpes simplex type 2 infection VITAMIN D,25-OH,TOTAL,IA Routine 08/15/2025 3:23 PM EDT Herpes simplex type 2 infection TSH W/REFLEX TO FT4 Routine 08/15/2025 3 :23 PM EDT Iron deficiency anemia due to chronic blood loss HEMATOXYLIN AND EOSIN STAIN Routine 08/15/2025 11:55 AM EDT CHLAMYDIA/N. GONORRHOEAE RNA, TMA, UROGENITAL Routine 08/15/2025 11:12 AM EDT US PELVIS TRANSVAGINAL Routine 07/07/2025 12:53 PM EDT PATHOLOGIST REVIEW - CBC Routine 06/22/2025 9:31 AM EDT CBC Routine 06/22/2025 9:31 AM EDT HM PAP/HPV Routine 06/09/2022 from Last 3 Months or Most Recently Relevant to Health Maintenance Results * Syphilis Screen (08/15/2025 3:23 PM EDT) Syphilis Screen Nonreactive Nonreactive [facility] Blood 08/15/2025 3:23 PM EDT 08/15/2025 3:23 PM EDT us Bessy Hawk MD LAB BLOOD ORDERABLES Fin al Result Performing Organization Address [facility] Co de Phone Number [facility] [address] [place] [address] [phone] * Vitamin D, 25-Hydroxy, Total, Immunoassay (08/15/2025 3:23 PM EDT) Vitamin D 25-OH Total 36.2 >30 ng/mL [facility] Comment: Health Based Reference Values*< 20 ng/mL Wbazxlepq57-50 ng/mL Insufficient> 30 ng/mL Sufficient*Angie BELCHER. N Engl J Med. 2007;357:266-280There is no well-established upper level of normal vitamin Dlevels. Some laboratories use 50 ng/mL as an upper limit ofnormal. However, toxicity is patient-dependent and may occurat any level. Careful correlation with the patient'spresentation is necessary and, if there is concern forvitamin D toxicity, treatment should be consideredirrespective of the serum level.Care must be taken in interpreting Vitamin D results fromdifferent laboratories and methodologies. Published datademonstrated that results from patients undergoinghemodialysis may show a negative bias when tested withvarious automated 25-OH vitamin D assays when compared toLC-MS/MS.When testing samples from patients whose predominant form ofVitamin D is Vitamin D2, such as patients receiving VitaminD2 supplementation, results that are subtherapeutic shouldbe confirmed with another method such as LC-MS/MS. Blood 08/15/2025 3:23 PM EDT 08/15/2025 3:23 PM EDT us Bessy Hawk MD LAB BLOOD ORDERABLES Fin al Result Performing Organization Address [facility]/ZIP Co de Phone Number [facility] [address] [place] [phone] * TSH with Reflex to Free T4 (08/15/2025 3:23 PM EDT) TSH reflex Free T4 0.87 0.32 - 4.0 uIU/mL [facility] Blood 08/15/2025 3:23 PM EDT 08/15/2025 3:23 PM EDT us Bessy Hawk MD LAB BLOOD ORDERABLES Fin al Result Performing Organization Address [facility] Co de Phone Number [facility] [address] [place] [address] [phone] * (ABNORMAL) Lipid Panel with Reflex to Direct LDL (08/15/2025 3:23 PM EDT) Triglycerides 133 <150 mg/dL [facility] Comment:Desirable Triglyceri de: less than 150 mg/dLBorderline High Triglyceride 150-199 mg/dLHigh Triglyceride: 200-499 mg/dLVery High Triglyceride: greater than or equal to 5OO mg/dL Cholesterol 198 <200 mg/dL [facility] Comment:Desirable Cholestero l: less than 200 mg/dLBorderline High Cholesterol: 200-239 mg/dLHigh Cholesterol: greater than 239 mg/dL LDL Cholesterol Calculated 115(H) <100 mg/dL [facility] Comment:Desirable LDL: less than 100 mg/dLNear Optimal/Above Optimal LDL: 110- 129 mg/dLBorderline High LDL: 130-159 mg/dLHigh LDL: 160-189 mg/dLVery High LDL: greater than or equal to 190 mg/dL HDL Cholesterol 57 >40 mg/dL [facility] Comment:Desirable HDL: great er than 40 mg/dL Note: This HDL assay may give artificially low results in patients with liver disease. Blood 08/15/2025 3:23 PM EDT 08/15/2025 3:23 PM EDT Bessy Hawk MD LAB BLOOD ORDERABLES Fin al Result Performing Organization Address [facility]/ZIP Co de Phone Number [facility] [address] [place] [address] [phone] * Hepatitis Panel, General (08/15/2025 3:23 PM EDT) Hepatitis A IgM Nonreactive Nonreactive [facility] Comment:IgM antibodies to HARRIS V not detected; does not exclude earlyacute or recovered HAV infection. ~Hepatitis B Surface Antibody REACTIVE Nonreactive [facility] Comment:REACTIVE: > 11.99 mI U/mL Hepatitis B Core Antibody Nonreactive Nonreactive [facility] Hepatitis C Antibody Nonreactive Nonreactive [facility] Comment:Antibodies to HCV no t detected; does not exclude early acuteHCV infection. Hepatitis B Surface Ag Negative Negative [facility] Blood 08/15/2025 3:23 PM EDT 08/15/2025 3:23 PM EDT Bessy Hawk MD LAB BLOOD ORDERABLES Fin al Result [facility] [address] [place] [phone] * HIV-1/2 Antigen and Antibodies, Fourth Generation, with Reflexes (08/15/2025 3:23 PM EDT) HIV AB/AG Nonreactive Nonreactive [facility] Comment:HIV-1 p24 Ag and/or HIV-1/HIV-2 Ab not detected.A test result that is nonreactive does not exclude thepossibility of exposure to or infection with HIV-1 and/orHIV-2. Nonreactive results in this assay for individualswith prior exposure to HIV-1 and/or HIV-2 may be due toantigen and antibody levels that are below the limit ofdetection of this assay.The [employer] HIV Ag/Ab Combo assay result andsupplemental assay results should be interpreted inconjunction with the patient's clinical presentation,history and other laboratory results. If the results areinconsistent with clinical evidence, additional testing issuggested to confirm the result. Blood Venous blood specimen / Unknown 08/15/2025 3:23 PM EDT 08/15/2025 3:23 PM EDT us Bessy Hawk MD LAB BLOOD ORDERABLES Fin al Result Performing Organization Address City/[facility]/ZIP Co de Phone Number [facility] [address] [place] [address] [phone] * (ABNORMAL) CBC (08/15/2025 3:23 PM EDT) Only the most recent of2 resultswithin the time period is included. White Blood Count 8.0 4.8 - 10.8 X10*3/uL [facility] Red Blood Count 4.55 4.20 - 5.50 X10*6/uL [facility] Hemoglobin 10.0(L) 12.0 - 16.0 g/dl [facility] Hematocrit 33.4(L) 37.0 - 47.0 % [facility] Mean Corpuscular Volume 73.4(L) 80.0 - 98.0 fL [facility] Mean Corpuscular Hemoglobin 22.0(L) 27.0 - 33.0 pg [facility] Mean Corpuscular HGB Conc 29.9(L) 31.0 - 35.0 g/dl [facility] Red Cell Distribution Width 23.9(H) 11.0 - 16.0 % [facility] Platelet Count 202 160 - 400 X10*3/uL [facility] Mean Platelet Volume 10.7 9.4 - 12.3 fL [facility] NRBC Pct Auto 0.0 0.0 - 0.2 /100WBC [facility] NRBC Abs Auto 0.000 0.0 - 0.012 X10*3/uL [facility] 08/15/2025 3:23 PM EDT 08/15/2025 3:23 PM EDT us Generic External Data Provider LAB BLOOD ORDERAB LES Final Result Performing Organization Address City/[facility]/ZIP Co de Phone Number [facility] [address] [place] [phone] * Hematoxylin and Eosin Stain (08/15/2025 11:55 AM EDT) 08/15/2025 11:5 5 AM EDT 08/16/2025 7:50 AM EDT [facility] - 08/17/2025 3:36 PM EDT ----- ------- Name: Chely Wu Age/Sex: 35/F : 1990 Unit#: [id number] Attend Dr: Bautista Bullock MD Re08/15/25 Status: [facility] REF Location: .LAB Disch: ----- ------- SPEC : [id number] RECD: 08/16/25344 STATUS: NAZANIN MIKA NUM: [id number] KATHLEEN: 08/15/25-1155 [facility] DR: Bautista Bullock MD ENTERED: 08/16/25 [...] developed and their performance characteristics determined by [facility]. They have not been cleared or approved by the U.S. Food and Drug Administration (FDA). However, the FDA has determined that such clearance or approval is not necessary. This laboratory is certified under the Clinical Laboratory Improvement Amendments of 1988 (CLIA) as qualified to perform high complexity clinical laboratory testing. Copies To: Bessy Hawk MD [address] [address] CONTINUED ON NEXT PAGE ----- ------- Name: Chely Wu Age/Sex: 35/F : 1990 Unit#: [id number] Attend Dr: Bautista Bullock MD Re08/15/25 Status: DEP [facility] ----- ------- SPEC : [id number] RECD: 08/16/25168 STATUS: NAZANIN BRENNAN NUM: [id number] KATHLEEN: 08/15/25-1155 [facility] DR: Bautista Bullock MD ENTERED: 08/16/25 SP TYPE: Surgical OTHR DR: Bessy Hawk MD ORDERED: HE Stain/2, Gross Micro L4 Copies To: (Continued) Bautista Bullock MD [facility] [address] [place] [address] ----- ------- Signed (signature on file) Lefty Lozoya MD 08/17/25 8522 ----- ------- END OF REPORT us Generic External Data Provider LAB BLOOD ORDERAB LES Final Result [facility] [address] [place] [address] [phone] * Chlamydia/N. Gonorrhoeae RNA, TMA, Urogenitial (08/15/2025 11:12 AM EDT) CT PCR NOT DETECTED Not Detect. [facility] Comment:A not detected test result [...] psychologicalconsequences. NG PCR NOT DETECTED Not Detect. [facility] Comment:A not detected test result [...] LAB MICROBIOLOGY - GENERAL ORDERABLES Final Result Performing Organization Address City/State/[facility] Co de Phone Number [facility] [address] [place] [phone] * US Pelvis Transvaginal (07/07/2025 12:53 PM EDT) Anatomical Region Laterality Modality Pelvis Ultrasound 07/07/2025 12:5 3 PM EDT Narrative 07/07/2025 1:22 PM EDT [facility] [address] [place] [address] [place] [address] Ultrasound Report Signed Patient: Chely Wu MR#: [id number] : 1990 Acct:[id number] Age/Sex: 35 / F ADM Date: 07/07/25 Loc: HO.HMGCX Attending Dr: Bautista Bullock MD Ordering Physician: Bautista Bullock MD Date of Service: 07/07/25 Procedure(s): US pelvic and transvaginal Accession Number(s): [id number] cc: eBssy Hawk MD; Bautista Bullock MD EXAMINATION: US [...] the endometrial canal. Electronically signed by: Stewart uBstos MD 07/07/2025 01:19 PM EDT Dictated By: Stewart Bustos MD Signed By: <Electronically signed by Stewart Bustos MD in OV> 07/07/25 1319 DD/ 1253 TD/TT: 07/07/25 1307 Legal Financial Specialist: Procedure Note Donotuseinterpreter, Image - 07/07/2025 [facility] [place] [place] [address] Ultrasound Report Signed Patient: Parveen Wu#: [id number] : 1990Acct:[id number] Age/Sex: 35 / FADM Date: 07/07/25 Loc: HO.HMGCX Attending Dr: Bautista Bullock MD Ordering Physician: Bautista Bullock MD Date of Service: 07/07/25 Procedure(s): US pelvic and transvaginal Accession Number(s): [id number] cc: Bessy Hawk MD; Bautista Bullock MD [...] 07/07/25 1319 DD/ 1253 TD/TT: 07/07/25 1307 Legal Financial Specialist: [facility] External Provider IMG US PROCEDURES Final Result * Pathologist Review - CBC (06/22/2025 9:31 AM EDT) Pathologist Review - CBC SEE NOTE [facility] Comment:Variably hypochromic microcytic anemia; elliptocytes arepresent. Please correlate with iron studies.- Lefty Lozoya M.D. Pathology 06/22/2025 9:31 AM EDT 06/22/2025 9:31 AM EDT Generic External Data Provider LAB BLOOD ORDERAB LES Final Result [facility] [address] [place] [phone] * Hm Pap Smear (06/09/2022) Pap Negative for intraephithelial lesion or malignancy Negative for intraephithelial lesion or malignancy, Other HPV Undetected Historical Provider HEALTH MAINTENANCE Final Result from Last 3 Months or Most Recently Relevant to Health Maintenance Insurance [facility] C3 BCBS PPO Care Teams Sonographer Relationship Specialty Start Date End Date Bessy Hawk MD [address] [place] [phone] PCP - General Family Medicine 10/20/16
--- OUTSIDE RECORDS SUMMARY | 2025-08-18 09:16 | XMS_ITS | Clinical Summary ---
Author Organization [facility] Address [address] [place] [address] Care Team Providers Care Cuff Setter Lockstitch Name Role Phone Unavailable Primary Care Provider [...]
--- OUTSIDE RECORDS SUMMARY | 2025-08-18 09:16 | XMS_ITS | Encounter Summary ---
Author Organization [employer] Address [address] [facility] [address] [place] [address] Care Team Providers Care Memorial Adviser Name Role Phone Bessy Hawk MD Primary Care Provider + Reason for Visit * Reason Comments Med Refill Encounter Details Date Type Department Care Team (Late st Contact Info) Description 04/24/2025 Refill [facility] [address] [place], [place] [phone] Nessa Kearns MD [address] [place], [place] [phone] Acute midline low back pain without sciatica; [...] Description 08/18/2025 9:20 AM EDT Office Visit [facility] [address] [place] [phone] 10/05/2025 11:45 AM EST Office Visit [facility] [address] [place] [phone] Bessy Hawk MD [address] [place] [phone] documented as of this encounter Visit Diagnoses Diagnosis Acute midline low back pain without sciatica Fall, initial encounter documented in this encounter Care Teams Memorial Adviser Relationship Specialty Start Date End Date Bessy Hawk MD [address] [place] [phone] PCP - General Family Medicine 10/20/16 documented as of this encounter
[2025-08-18 11:53] LABS: Anion Gap 8 (12-20); Blood Urea Nitrogen 7 mg/dL (9-16); Calcium 9.0 mg/dL (8.4-10.2); Carbon Dioxide 28 mmol/L (22-29); Chloride 108 mmol/L (96-108); Estimated Glomerular Filt Rate > 60; Potassium 4.2 mmol/L (3.3-5.1); Sodium 140 mmol/L (135-145)
[2025-08-18 12:42] LABS: CT PCR Urine NOT DETECTED (Not Detect.); NG PCR Urine NOT DETECTED (Not Detect.)
== END 2025-08-18 08:45 | disposition home or self-care (01) ==
LOC: HO.HHCL 08:44
PROVIDERS: PCP Internal Medicine; Visit Provider Internal Medicine
DX: D50.0 Iron deficiency anemia secondary to blood loss (chronic) (principal)
CPT/HCPCS: 80048; 87491; 87591